=== PATIENT | female | born 1990 | race Caucasian/White ===

== ENCOUNTER 2019-04-18 02:14 | Emergency (ER) | payer OTHER, MEDICAID, SELFPAY ==
[2019-04-18 02:22] VITALS: BP 113/78; PULSE 123; RESP 18; TEMP 37.2; O2SAT 100; BMI 30.1
[2019-04-18 02:56] LABS: Appearance Urine UA CLOUDY; Bilirubin Urine UA NEGATIVE (NEGATIVE); Color Urine UA YELLOW; Glucose Urine UA NEGATIVE (Negative); Ketones Urine UA NEGATIVE (NEGATIVE); Leukocyte Esterase Urine UA 3+ (NEGATIVE); Nitrite Urine UA NEGATIVE (Negative); Occult Blood Urine UA 1+ (Negative); Protein Urine UA 1+ (Negative); Urobilinogen Urine UA 0.2 E.U./dL (0.2)
[2019-04-18 02:59] LABS: Pregnancy Test Urine Negative (Negative)
[2019-04-18 03:09] LABS: RBC Urine 1-5/HPF (0-5/HPF); WBC Urine >100/HPF (0-5/HPF)
[2019-04-18 03:10] LABS: Bacteria Urine Many (>30); Culture Indicated Urine Specimen Cultured; Squamous Epithelial Cell Urine 0-1 /HPF (0-5/HPF)
[2019-04-18 04:00] VITALS: BP 122/70; PULSE 60; RESP 18; TEMP 37.3; O2SAT 98
--- NOTE | 2019-04-18 05:54 | ED_ITS ---
HPI - Female Genitourinary General Chief complaint: Urogenital-Female Stated complaint: thinks kidney infection Time Seen by Provider: 04/18/19 05:54 Source: patient Mode of arrival: Ambulatory Limitations: no limitations History of Present Illness HPI Narrative: This is a 28-year-old female comes emergency department with complaint of flank pain as well as dysuria urgency and frequency. Patient states she thinks she has a kidney infection. She thinks she has felt warm like she has had fevers. She has had nausea but no vomiting. She has some lower abdominal pain. No vaginal bleeding or discharge. No issues with bowel movements, no diarrhea constipation patient states that she has had her appendix removed, she does use multiple illicit substances, smokes tobacco. Patient states she is quite uncomfortable at this time. Related Data Previous Rx's Medication Instructions Recorded cephalexin 500 mg PO BID #28 cap 04/18/19 Review of Systems Review of Systems ROS Unobtainable: All systems reviewed & are unremarkable except as noted in HPI and below Patient History tobacco type: cigarettes Substance Use Type: marijuana, heroin, amphetamines, IV drugs and methamphetamine Exam Narrative Exam Narrative: GENERAL: Alert and oriented x three, well-nourished female in moderate distress. Patient is tearful on exam and states she is frustrated with her weight. HEENT: Head normocephalic, atraumatic, EOMI, pupils reactive, face symmetric, moist mucous membranes NECK: Supple, full range of motion CARDIOVASCULAR: Regular rate and rhythm without murmurs, rubs or gallops. RESPIRATORY: Breath sounds equal bilaterally, no wheezes rales or rhonchi. ABDOMEN: Soft, mild suprapubic tenderness. Normoactive bowel sounds all 4 quadrants. No guarding or rebound, rigidity, no mass : Mild left CVA tenderness, no right CVA tenderness. EXTREMITIES: Normal range of motion, no clubbing or edema. Neurovascularly intact NEUROLOGICAL: Cranial nerves II through XII grossly intact. Moving all extremities SKIN: Warm, dry, no petechiae, no rashes or lesions. Initial Vital Signs Initial Vital Signs: Vital Signs Temperature 98.9 F 04/18/19 02:22 Pulse Rate 123 H 04/18/19 02:22 Respiratory Rate 18 04/18/19 02:22 Blood Pressure 113/78 04/18/19 02:22 Pulse Oximetry 100 04/18/19 02:22 Course Orders Ordered: ED Orders 04/18/19 02:38 Test Urine Stat Urinalysis and Microscopic Stat Urine Culture Stat Discontinued Medications Cefazolin Sodium (Keflex 250 Mg Prepack) 1 bottle MISC SEEINSTR ONE Stop: 04/18/19 06:10 Last Admin: 04/18/19 06:33 Dose: 500 mg Documented by: EMMA Ketorolac Tromethamine (Toradol) 30 mg IM NOW ONE Stop: 04/18/19 06:10 Last Admin: 04/18/19 06:33 Dose: 30 mg Documented by: EMMA Vital Signs Vital signs: Vital Signs - 8 hr 04/18/19 02:22 04/18/19 04:00 04/18/19 06:40 Temperature 98.9 F 99.2 F 98.8 F Pulse Rate 123 H 60 113 H Respiratory Rate 18 18 16 Blood Pressure 113/78 Blood Pressure [Right Arm] 122/70 110/60 Pulse Oximetry 100 98 99 MDM - Female Genitourinary Lab Data Attestation: I reviewed the patient's lab results. Labs: Lab Results 04/18/19 04/18/19 Range/Units 02:38 02:38 Urine Color Yellow Urine Appearance Cloudy Urine pH 8.0 (4.5-8.0) Ur Specific [place] 1.020 (1.000-1.035) Urine Protein 1+ H (Negative) Urine Glucose (UA) Negative (Negative) g/dL Urine Ketones Negative (NEGATIVE) Urine Occult Blood 1+ H (Negative) Urine Nitrate Negative (Negative) Urine Bilirubin Negative (NEGATIVE) Urine Urobilinogen 0.2 (0.2) E.U./dL Ur Leukocyte Esterase 3+ H (NEGATIVE) Urine RBC 1-5/hpf (0-5/HPF) Urine WBC >100/hpf H (0-5/HPF) Ur Squamous Epith Cells 0-1 /hpf (0-5/HPF) Urine Bacteria Many (>30) H (None) Ur Culture Indicated? Specimen cultured Urine Test Negative (Negative) MDM Narrative Medical decision making narrative: Patient's labs and history are consistent with pyelonephritis she was initially tachycardic but had also recently used methamphetamines per the patient herself. Her vitals have improved during her stay here without additional intervention. She was given some fluids which she did not have any vomiting or issues drinking. Given a dose of Toradol for pain and started on oral antibiotics. Discussed return precautions signs and symptoms to watch for and reasons to return emergently. Discharge Plan Departure Patient Disposition: Home Clinical Impression: Pyelonephritis Instructions: DI for Kidney Infection Activity Restrictions/Additional Instructions: Follow-up in the next week if your symptoms are not resolved or resolving. You may take ibuprofen and/or Tylenol as needed for pain. Take antibiotics until they are completely gone. Return to the ER for recurrent fevers, passing out, persistent vomiting, black or bloody stools, inability to urinate, rapidly worsening flank or abdominal pain or other new or concerning symptoms. Prescriptions: New cephalexin 500 mg capsule 500 mg PO BID Qty: 28 RF: 0
[2019-04-18] MEDS: KETOROLAC 60 MG/2 ML VIAL 30 MG IM (06:33)
[2019-04-18] MEDS: cephALEXin 250 MG PREPACK 1 BOTTLE MISC (06:33)
[2019-04-18 06:40] VITALS: BP 110/60; PULSE 113; RESP 16; TEMP 37.1; O2SAT 99
== END 2019-04-18 06:51 | disposition home or self-care (01) ==
PROVIDERS: Emergency Provider Emergency Medicine
DX: N12 Tubulo-interstitial nephritis, not specified as acute or chronic (principal)
CPT/HCPCS: 81001; 81025; 87077; 87086; 87186; 96372; 99283; J1885

== ENCOUNTER 2019-04-20 04:26 | Emergency (ER) | payer OTHER, MEDICAID, SELFPAY ==
[2019-04-20 04:41] VITALS: BP 107/68; PULSE 86; RESP 18; TEMP 36.9; O2SAT 100
--- NOTE | 2019-04-20 04:49 | ED.GENADULT ---
HPI - General Adult General Stated complaint: kidney infection Time Seen by Provider: 04/20/19 04:29 Source: patient Mode of arrival: Ambulatory Limitations: no limitations History of Present Illness HPI narrative: Patient is a 28-year-old female. Was seen here in the emergency department approximately 48 hours ago and diagnosed with pyelonephritis. Was given a prescription for Keflex. The patient states she has been taking this for the past 2 days. Has had some nausea. No vomiting. She states that her abdomen has become more painful more distended. States she had a fever last evening. She did not take any Tylenol for this. She also complains of problems breathing secondary to pain in her abdomen. She is also complaining of lower extremity swelling. Related Data Previous Rx's Medication Instructions Recorded cephalexin 500 mg PO BID #28 cap 04/18/19 ondansetron 4 mg PO Q6H PRN #10 tab 04/20/19 Review of Systems Constitutional Constitutional: Reports fatigue and Reports fever(s) Cardiovascular Cardiovascular: Denies chest pain Respiratory Respiratory: Reports pain on inspiration Gastrointestinal Gastrointestinal: Reports abdominal pain, Reports nausea and Denies vomiting Genitourinary Genitourinary: Denies vaginal discharge Integumentary/Breasts Skin/Breast: Denies lesions and Denies rash Neurologic Neurologic: Denies behavioral changes Psychiatric Psychiatric: Denies behavioral changes Endocrine Endocrine: Reports fatigue Hematologic/Lymphatic Hematologic/Lymphatic: Denies easy bleeding and Denies easy bruising Patient History Medical History Drug abuse (Acute) Social History Smoking Status: Current every day smoker Smoking Status: Current every day smoker tobacco type: cigarettes Substance Use Type: marijuana, heroin, amphetamines, IV drugs and methamphetamine Exam Const General: cooperative and disheveled Resp Effort & Inspection: normal respiratory effort Auscultation: clear to auscultation bilaterally Cardio Rate: regular rate Rhythm: regular rhythm GI Inspection: non-distended Palpation: soft, No firm and tender (Generalized tenderness) Back/Spine/Pelvis Back: CVA tenderness right Skin Other: Multiple wounds bilateral upper extremities in multiple stages of healing. Neuro General: alert, awake and oriented x3 Extrem General: normal to inspection and capillary refill normal Course Orders Ordered: Discontinued Medications Ketorolac Tromethamine (Toradol) 30 mg IM NOW ONE Stop: 04/20/19 04:50 Ondansetron HCl (Zofran Odt) 4 mg SL NOW ONE Stop: 04/20/19 04:50 Medical Decision Making MDM Narrative Medical decision making narrative: Review of the patient's record from a couple days ago does show a diagnosis of pyelonephritis and discharge medication of Keflex. She has been taking this for the past 2 days. Review of the urine culture that was obtained at that time does show greater than 100,000 colony-forming units of a Gram-negative bacilli. No further information available to include susceptibilities. Patient has been tolerating her antibiotics. She is afebrile. Has a benign exam. I feel that we should keep her on the Keflex until the susceptibilities return in order to make any definitive diagnosis of changing the antibiotics. I do not feel that we need to obtain a CT scan of her abdomen currently. She was given Toradol for her symptoms. We did give her nausea medication today. I did inform her that she could take Tylenol and/or ibuprofen for her fevers. She is here with her mother. Her mother asked that she could be admitted to the hospital for ?at least a day ?because she is currently staying [place] it [place] any heat. I informed them that unfortunately her diagnosis and exam today would not warranted admission to the hospital. I informed her that since she is here in town that she could stop by [facility] which is open and obtain Tylenol and/or ibuprofen that she could have at home. She was informed that we will contact her for any need with changing medications. Discharge Plan Departure Patient Disposition: Home Clinical Impression: Pyelonephritis Abdominal pain Qualifiers: Abdominal location: right upper quadrant Qualified Code(s): R10.11 - Right upper quadrant pain Activity Restrictions/Additional Instructions: Your urine culture that was obtained a couple days ago is still pending. The results that should be available within the next 24-48 hours. I feel that we should continue when your current antibiotic regiment until this returns. We will call you if we need to change any antibiotics based on this. I recommend that you purchase Tylenol and/or ibuprofen so that you have at home. You can use this for fevers and body aches. Recommend that you increase your fluid intake. Take the nausea medication as needed. Contact your primary provider for follow-up. If you do not have a primary provider you can contact [phone]. This is the health human resources coordinator here at the hospital. Prescriptions: New ondansetron 4 mg tablet,disintegrating 4 mg PO Q6H PRN (Reason: nausea and vomiting) Qty: 10 RF: 0 No Action cephalexin 500 mg capsule 500 mg PO BID Qty: 28 RF: 0
[2019-04-20] MEDS: ONDANSETRON 4 MG ODT SL (04:50)
[2019-04-20] MEDS: KETOROLAC 60 MG/2 ML VIAL 30 MG IM (04:50)
[2019-04-20 04:57] VITALS: BP 103/88; RESP 20; O2SAT 100
[2019-04-20] MEDS: ONDANSETRON 4 MG ODT PREPACK 1 BOTTLE MISC (05:11)
== END 2019-04-20 05:10 | disposition home or self-care (01) ==
PROVIDERS: Emergency Provider Emergency Medicine
DX: N12 Tubulo-interstitial nephritis, not specified as acute or chronic (principal); R10.11 Right upper quadrant pain; R50.9 Fever, unspecified
CPT/HCPCS: 96372; 99283; J1885

== ENCOUNTER 2019-06-05 05:34 | Observation (INO) | payer OTHER, MEDICAID, SELFPAY ==
[2019-06-05] VITALS (16 sets, daily range): BP systolic 104–134; BP diastolic 51–89; PULSE 62–101; RESP 10–20; TEMP 36.2–37.2; O2SAT 94–100; BMI 30.1; BMI 30.4
--- NOTE | 2019-06-05 05:36 | ED.SKABFB ---
HPI - Skin/Abscess/Foreign Bdy General Chief complaint: Skin/Abscess/Foreign Body Stated complaint: rt thumb burned, lft wrist bug bite Time Seen by Provider: 06/05/19 05:36 Source: patient Mode of arrival: Ambulatory Limitations: no limitations History of Present Illness HPI narrative: 28F smoker with history of IVDA presents with a bug bite to her left wrist and a burn on her right thumb. She denies any systemic complaints such as fever, chills nor nausea or vomiting. She states she had a cut on her right thumb which irritated her a bit and then was trying to light marshmallows with a linen controller and a melted marshmallow was stuck to the tip of her thumb. She now has pain, swelling, difficult moving her thumb, pain radiating to palm. She denies seeing a bug bite her on her left wrist, but states she developed this bite over the past few days. She denies any IVDA in over a month and only smokes now. MD complaint: abscess/boil Onset (ago): day(s) Location: LUE and R hand Severity: moderate Quality: aching Pain Consistency: constant Exacerbating factors: movement Associated symptoms: denies other symptoms Related Data Previous Rx's Medication Instructions Recorded cephalexin 500 mg PO BID #28 cap 04/18/19 ondansetron 4 mg PO Q6H PRN #10 tab 04/20/19 Allergies Allergy/AdvReac Type Severity Reaction Status Date / Time No Known Drug Allergies Allergy Verified 06/05/19 05:49 Review of Systems Constitutional Constitutional: Denies chills, Denies fatigue, Denies fever(s), Denies frequent falls, Denies lethargy and Denies weakness Eyes Eyes: Denies change in vision, Denies eye discharge, Denies irritation and Denies loss of vision ENT Ears, Nose, Mouth, and Throat: Denies change in voice, Denies dizziness, Denies neck pain, Denies sore throat and Denies throat swelling Cardiovascular Cardiovascular: Denies chest pain, Denies irregular heart rhythm, Denies lightheadedness, Denies palpitations, Denies dyspnea, Denies dyspnea on exertion and Denies orthopnea Respiratory Respiratory: Denies cough, Denies dyspnea, Denies dyspnea on exertion and Denies wheezing Gastrointestinal Gastrointestinal: Denies abdominal pain, Denies change in bowel habits, Denies diarrhea, Denies nausea and Denies vomiting Genitourinary Genitourinary: Denies hematuria, Denies flank pain, Denies urinary incontinence and Denies urinary urgency Musculoskeletal Musculoskeletal: Denies back pain, Reports joint swelling, Reports limited range of motion, Denies muscle weakness, Denies neck pain, Denies numbness and Denies tingling Integumentary/Breasts Skin/Breast: Denies pruritus, Reports erythema, Denies rash and Denies wounds Neurologic Neurologic: Denies behavioral changes, Denies confusion, Denies dizziness, Denies frequent falls, Denies loss of vision, Denies numbness, Denies tingling and Denies weakness Psychiatric Psychiatric: Denies anxiety, Denies behavioral changes, Denies confusion, Denies depression, Denies homicidal ideation and Denies suicidal ideation Endocrine Endocrine: Denies fatigue, Denies flushing and Denies palpitations Hematologic/Lymphatic Hematologic/Lymphatic: Denies easy bruising Allergic/Immunologic Allergic/Immunologic: Denies urticaria, Denies throat swelling and Denies wheezing Patient History Medical History Drug abuse (Acute) Social History Smoking Status: Current every day smoker Smoking Status: Current every day smoker tobacco type: cigarettes Substance Use Type: marijuana, heroin, amphetamines, IV drugs and methamphetamine Exam Narrative Exam Narrative: GENERAL: [Please] year old patient appears stated age. Well-nourished, well-developed patient, in mild distress. Tearful HEAD: Atraumatic. Normocephalic. EYES: Pupils equal round and reactive. Extraocular motions intact. No scleral icterus. No injection or drainage. ENT: Nose without bleeding, purulent drainage. Throat without erythema, tonsillar hypertrophy or exudate. Airway patent. NECK: Trachea midline. Non tender CARDIOVASCULAR: Regular rate and rhythm without murmurs, gallops, or rubs. RESPIRATORY: Clear to auscultation. Breath sounds equal bilaterally. No wheezes, rales, or rhonchi. GASTROINTESTINAL: Abdomen soft, non-tender, nondistended. EXTREMITIES: 2 cm fluctuant mass overlying distal minimal surrounding erythema consistent with abscess. Right thumb significantly swollen, erythematous, held in flexion, significant pain with passive extension. Pain on palpation along flexor tendon into thenar eminence BACK: Nontender without deformity or crepitance. No flank tenderness. NEURO: AOx3. SKIN: No rash or erythema of visible areas Initial Vital Signs Initial Vital Signs: Vital Signs Temperature 97.9 F 06/05/19 05:43 Pulse Rate 91 H 06/05/19 05:43 Respiratory Rate 14 06/05/19 05:43 Blood Pressure 134/61 06/05/19 05:43 Pulse Oximetry 100 06/05/19 05:43 Course Course Course Narrative: call to Dr. Hay, given her NPO status (since 529) he recommends NPO, ABX, will take to OR later Orders Ordered: ED Orders 06/05/19 06:15 Basic Metabolic Panel Stat Blood Culture Stat C-Reactive Protein Quant Stat Complete Blood Count AUTO DIFF Stat Erythrocyte Sedimentation Rate Stat Vancomycin HCl/Dextrose (Vancomycin) 1,500 mg in 300 mls @ 200 mls/hr IV NOW ONE Stop: 06/05/19 07:38 Naloxone HCl (Narcan) 0.2 mg IV Q2MIN PRN PRN Reason: Opiate Reversal Discontinued Medications Doxycycline Hyclate (Vibramycin) 100 mg PO NOW ONE Stop: 06/05/19 05:40 Last Admin: 06/05/19 06:08 Dose: Not Given Documented by: JORGE LUIS Lidocaine/Sodium Bicarbonate (Buffered Lidocaine 10 Ml Syr) 10 ml INJ NOW ONE Stop: 06/05/19 05:40 Last Admin: 06/05/19 05:48 Dose: 10 ml Documented by: JORGE LUIS Vital Signs Vital signs: Vital Signs - 8 hr 06/05/19 05:43 Temperature 97.9 F Pulse Rate 91 H Respiratory Rate 14 Blood Pressure 134/61 Pulse Oximetry 100 MDM - Skin/Abscess/Foreign Bdy Lab Data Result diagrams: 06/05/19 06:15 06/05/19 06:15 Labs: Lab Results 06/05/19 06/05/19 Range/Units 06:15 06:15 WBC 9.6 (4.5-11.0) X10^3/uL RBC 4.71 (4.0-5.2) X10^6/uL Hgb 14.3 (12.0-16.0) g/dL Hct 42.6 (36-46) % MCV 90.5 (80-100) fL MCH 30.4 (26-34) PG MCHC 33.6 (30-36) % RDW 14.5 (11.6-14.8) % Plt Count 253 (150-400) X10^3/uL Neut % (Auto) 70.1 (50-75) % Lymph % (Auto) 18.6 L (25-40) % [place] % (Auto) 8.8 (3-14) % Eos % (Auto) 1.9 L (2-4) % Baso % (Auto) 0.6 (0-2) % Neut # (Auto) 6700 (6147-3978) /uL Lymph # (Auto) 1800 (4488-1348) /uL [place] # (Auto) 800 (0-900) /uL Eos # (Auto) 200 (0-450) /uL Baso # (Auto) 100 (0-100) /uL ESR 11 (0-20) MM/HR Sodium 140 (137-145) mmol/L Potassium 3.8 (3.4-5.1) mmol/L Chloride 103 (98-107) mmol/L Carbon Dioxide 29 (22-32) mmol/L BUN 18 H (7-17) mg/dL Creatinine 0.65 (0.52-1.04) mg/dL Estimated GFR > 60.0 (>60) mL/min BUN/Creatinine Ratio 27.7 H (6-22) Glucose 126 H (70-100) mg/dL Calcium 9.7 (8.4-10.2) mg/dL C-Reactive Protein 0.8 (<1.0) mg/dL MDM Narrative Medical decision making narrative: Patient admits to cut on skin of thumb prior to it being burned. The redness, pain and swelling is worsening and spreading down the thumb. It is significantly worse today. Physical exam is highly suspicious of flexor tenosynovitis with possible abscess. Patient refused I&D of L wrist abscess in ED, stating why can't they just do it when I'm asleep? I don't want you to do it now Discharge Plan Departure Patient Disposition: Admitted as Observation Clinical Impression: Abscess of skin or subcutaneous tissue, Flexor tenosynovitis of thumb Admit Date/Time: 06/05/19 06:26 Admit Provider: Seamus Hay
[2019-06-05] MEDS: LIDO 1%/SOD BICARB 8.4% (10ML) 10 ML SYRINGE INJ (05:48)
--- NOTE | 2019-06-05 06:25 | PC.NURSE ---
patient reports having a burning marshmallow stuck onto her right thumb when she was roasting marshmallows with a bic toy assembler wood. reports it happened about a week ago. Patient additionally reports having a bug bite on her left wrist that is now a draining boil. Reports her tetanus is up to date.
[2019-06-05 06:29] LABS: Add Manual Diff / Slide Review NO; Basophils Absolute Auto 100 /uL (0-100); Basophils Percent Auto 0.6 % (0-2); Eosinophils Absolute Auto 200 /uL (0-450); Eosinophils Percent Auto 1.9 % (2-4); Hematocrit 42.6 % (36-46); Hemoglobin 14.3 g/dL (12.0-16.0); Lymphocytes Absolute Auto 1800 /uL (1100-4500); Lymphocytes Percent Auto 18.6 % (25-40); Mean Corpuscular HGB Conc 33.6 % (30-36); Mean Corpuscular Hemoglobin 30.4 PG (26-34); Mean Corpuscular Volume 90.5 fL (80-100); Monocytes Absolute Auto 800 /uL (0-900); Monocytes Percent Auto 8.8 % (3-14); Neutrophils Absolute Auto 6700 /uL (1500-7000); Neutrophils Percent Auto 70.1 % (50-75); Platelet Count 253 X10^3/uL (150-400); Red Blood Cell Count 4.71 X10^6/uL (4.0-5.2); Red Cell Distribution Width 14.5 % (11.6-14.8); White Blood Cell Count 9.6 X10^3/uL (4.5-11.0)
--- NOTE | 2019-06-05 06:37 | PC.NURSE ---
Patient stated she refused the second set of blood cultures. She said I would'nt let her do it. Provider aware.
[2019-06-05 06:38] LABS: BUN Creatinine Ratio 27.7 (6-22); Blood Urea Nitrogen 18 mg/dL (7-17); C-Reactive Protein Quant 0.8 mg/dL (<1.0); Calcium 9.7 mg/dL (8.4-10.2); Carbon Dioxide 29 mmol/L (22-32); Chloride 103 mmol/L (98-107); Estimated Glomerular Filt Rate > 60.0 mL/min (>60); Glucose 126 mg/dL (70-100); HEMOLYSIS < 15 (0-50); Potassium 3.8 mmol/L (3.4-5.1); Sodium 140 mmol/L (137-145)
[2019-06-05 06:49] LABS: Erythrocyte Sedimentation Rate 11 MM/HR (0-20)
[2019-06-05] MEDS: VANCOMYCIN 1,500 MG/300 ML FROZ.PIGGY 200 MG IV (07:05)
--- NOTE | 2019-06-05 07:06 | PC.NURSE ---
vancomyacin to continue in acute care.
[2019-06-05] MEDS: SODIUM CHLORIDE 0.9% 1,000 ML 125 ML IV (07:55)
--- NOTE | 2019-06-05 08:23 | PM.HP.1 ---
History of Present Illness History of Present Illness Date Patient Seen: 06/05/19 Time Patient Seen: 08:25 Date of Onset of Symptoms: 05/30/19 Chief complaint: rt thumb burn, lft wrist bug bite Narrative: The patient is a 28 yo RHD female who is an active IV drug abuser with heroin and methamphetamine. She reports a burn with a hot marshmallow to the tip of her right thumb approximately 6 days ago. About 2 days after the burn she started to develop significant swelling and pain in the distal pad of the thumb. She presented to the emergency room this morning with complaints of the burn on the thumb and a contralateral, left wrist abscess. She denies that either abscess is an injection site. She says she has not used IV drugs for approximately 2 weeks, and all injections have been into the left antecubital fossa. She specifically denies fevers and chills but gives a 1 day history of significant dysuria. Patient History Medical History (Updated 06/05/19 @ 08:33 by Seamus Hay MD) Asthma (Acute) Drug abuse (Acute) Surgical History (Updated 06/05/19 @ 08:33 by Seamus Hay MD) History of appendectomy (Acute) Family & Social History Safety & Behavioral: Feels Safe in Current Yes Environment Been Physically Hurt or No Threatened By a Person Tobacco & Substance use: Smoking Status Current every day smoker alcohol intake frequency 0-2 drinks per day Substance Use Type marijuana,amphetamines,IV drugs,heroin, methamphetamine Meds Home Medications and Allergies Home Medications Medication Instructions Recorded Confirmed Type cephalexin 500 mg PO BID #28 cap 04/18/19 Rx ondansetron 4 mg PO Q6H PRN #10 tab 04/20/19 Rx Allergies Allergy/AdvReac Type Severity Reaction Status Date / Time No Known Drug Allergies Allergy Verified 06/05/19 05:49 Review of Systems Constitutional Constitutional: Denies anorexia, Reports body ache(s), Denies chills and Denies fever(s) Eyes Eyes: Reports system reviewed; no additional complaints, except as documented ENT Ears, Nose, Mouth, and Throat: Yes system reviewed; no additional complaints, except as documented Cardiovascular Cardiovascular: Reports system reviewed; no additional complaints, except as documented Respiratory Respiratory: Reports as per HPI Gastrointestinal Gastrointestinal: Reports system reviewed and no additional complaints, except as documented Genitourinary Genitourinary: Reports other (dysuria for one day) Musculoskeletal Musculoskeletal: Reports arthralgias Integumentary/Breasts Skin/Breast: Reports as per HPI Exam Vital Signs (past 8 hours): - 06/05/19 05:43 06/05/19 07:02 06/05/19 07:03 Temperature 97.9 F 97.2 F L Pulse Rate 91 H 73 62 Respiratory Rate 14 16 10 L Blood Pressure 134/61 114/74 121/70 Pulse Oximetry 100 100 100 Oxygen Delivery Method Room Air Narrative Exam Narrative: The patient is a well-developed well-nourished 28-year-old woman lying in bed in obvious discomfort. Chest is clear to auscultation with no wheezes. Cardiac exam is regular rate and rhythm no rubs murmurs or gallops. Abdomen is soft nontender with no palpable masses and normal abdominal bowel sounds. Extremities examination is notable for both distal upper extremities. There is a localized swelling of the digital pad of the right thumb with what appears to be a pointing abscess. Although she is tender along the flexor surface of the thumb, there is no swelling, there is no tenseness of the skin, and no palpable masses more proximally. She is reacting significantly to all mildly painful stimuli including passive extension of the thumb. She is nontender over the base of the small finger and over the carpal tunnel region. Light touch appears to be intact throughout. Overlying the 1st dorsal compartment of the left wrist, there is a localized furuncle with a central bloody spot. This is surrounded by a small amount of erythema and has a central area of purulence. Objective Labs Result Diagrams: 06/05/19 06:15 06/05/19 06:15 Labs: Laboratory Results - last 24 hr 06/05/19 06/05/19 06:15 06:15 WBC 9.6 RBC 4.71 Hgb 14.3 Hct 42.6 MCV 90.5 MCH 30.4 MCHC 33.6 RDW 14.5 Plt Count 253 Neut % (Auto) 70.1 Lymph % (Auto) 18.6 L [place] % (Auto) 8.8 Eos % (Auto) 1.9 L Baso % (Auto) 0.6 Neut # (Auto) 6700 Lymph # (Auto) 1800 [place] # (Auto) 800 Eos # (Auto) 200 Baso # (Auto) 100 ESR 11 Sodium 140 Potassium 3.8 Chloride 103 Carbon Dioxide 29 BUN 18 H Creatinine 0.65 Estimated GFR > 60.0 BUN/Creatinine Ratio 27.7 H Glucose 126 H Calcium 9.7 C-Reactive Protein 0.8 Assessment & Plan Assessment & Plan narrative: 1. Right thumb abscess with potential flexor tendon involvement. We will prepare the patient for incision and drainage of the thumb abscess. If there appears to be evidence of tendon involvement at surgery she is aware that there may be proximal incisions at the base of the thumb and potentially at the carpal tunnel. 2. Left wrist abscess. While she is under anesthesia for the right thumb procedure I will perform a localized incision and drainage of the furuncle on her left wrist. 3. Dysuria. It is possible the patient has urinary tract infection. To appropriately treat this we would need a non contaminated urine culture. Given the fact that the patient has significant pain with use of her right, dominant, hand, I feel it is highly unlikely she would be able to provide an appropriate clean catch urine. I have suggested that she have an in and out straight catheterization to obtain a non contaminated sample, but the patient has refused. If she elects to allow this in the future we will obtain a urine sample. Time Spent With Patient Time with patient: 25 - 35 minutes
--- NOTE | 2019-06-05 10:11 | PC.NURSE ---
Day shift: Pt has been sleeping on and off. Does not wake up to answer questions from this appeals writer and for lack of a better work has been uncooperative but pleasant. Pt has voided 3 times. Is steady on feet. Was tearful in the BR at approx 0920 today. Has refused in and out cath to check urine for UTI and Dr Hay is aware. When Pt wakes up again will ask her if they can cath her when she is asleep for the I&D later today. VS WNL. RA 97%. Lungs clear and denies any chest pain. Pain meds available per MAR as well as anxiety meds. Pt not awake long enough to give pain meds at this time. Will continue to monitor. Pt is NPO. Uses call light proper. Door to room open and line of site from this writers work station.
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
--- NOTE | 2019-06-05 14:12 | PC.NURSE ---
Day shift: Pt very tired and sleeping at this time (1415). Sl for transfer to surgery. Pt was asked if it would be OK to do the in and out cath for urine sample but Pt did not reply to my question. VS remain WNL. RR 16 and RA 99%.
--- NOTE | 2019-06-05 14:43 | PC.NURSE ---
Day shift: Pt off of AC unit at 1440 for procedure. Jewelry placed in patient bag and placed in room closet.
[2019-06-05] MEDS: LACTATED RINGERS 1,000 ML 42 ML IV (15:15)
--- NOTE | 2019-06-05 16:14 | SUR.OPER ---
Supine on padded OR bed, head on pillow, arms secured on padded arm boards at <90 degrees abduction, legs uncrossed, safety belt at thigh, tape over blanket over lower legs.
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
[2019-06-05] MEDS: LACTATED RINGERS 1,000 ML 100 ML IV (16:44)
--- NOTE | 2019-06-05 17:02 | SUR.PHASEI ---
REPORT CALLED TO MELY WARNER ON ACUTE CARE FLOOR. PT IN STABLE CONDITION, VSS. PT RESTING IN BED WITH EYES CLOSED, EASILY RESPONDS TO VOICE WHEN SPOKEN TO. PT APPEARS COMFORTABLE AT THIS TIME. WILL TRANSFER TO ACUTE CARE FLOOR.
--- NOTE | 2019-06-05 17:24 | SUR.PHASEI ---
PT TRANSFERRED TO ACUTE CARE FLOOR IN STABLE CONDITION, VSS. PT RESTING WITH EYES CLOSED, EASILY AROUSABLE TO VOICE WHEN SPOKEN TO. BEDSIDE REPORT GIVEN TO MELY WARNER UPON ARRIVAL TO ROOM. TRANSFERRED CARE OF CARE TO MELY WARNER WITH VSS.
[2019-06-05] MEDS: LACTATED RINGERS 1,000 ML 125 ML IV (17:27)
[2019-06-05] MEDS: OXYCODONE IR 10 MG TABLET PO ×2 (18:31→21:17)
[2019-06-05] MEDS: VANCOMYCIN 1,000 MG/200 ML PIGGYBACK 200 MG IV (18:32)
[2019-06-05] MEDS: LORazepam 0.5 MG TABLET PO ×2 (19:39→20:15)
[2019-06-05] MEDS: HYDROMORPHONE 0.5 MG INJ 0.2 MG IV (19:39)
[2019-06-05] MEDS: ACETAMINOPHEN 325 MG TABLET 975 MG PO (21:16)
[2019-06-06] MEDS: VANCOMYCIN 1,000 MG/200 ML PIGGYBACK 200 MG IV ×2 (01:21→08:00)
[2019-06-06] MEDS: LACTATED RINGERS 1,000 ML 125 ML IV (04:12)
[2019-06-06 05:48] VITALS: BP 100/68; PULSE 83; RESP 16; TEMP 36.8; O2SAT 97
[2019-06-06 06:33] LABS: Hematocrit 40.2 % (36-46); Hemoglobin 13.2 g/dL (12.0-16.0); Mean Corpuscular HGB Conc 32.8 % (30-36); Mean Corpuscular Hemoglobin 29.9 PG (26-34); Platelet Count 291 X10^3/uL (150-400); Red Blood Cell Count 4.42 X10^6/uL (4.0-5.2)
[2019-06-06 08:00] VITALS: BP 86/64; PULSE 89; RESP 18; TEMP 36.8; O2SAT 97
[2019-06-06] MEDS: ACETAMINOPHEN 325 MG TABLET 975 MG PO (08:00)
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
--- NOTE | 2019-06-06 08:54 | CM.DPC ---
DCP Cont: Patient had her I&D done last pm. She is to be discharged home today on oral antibiotics. Patient given teaching from nurse regarding her dressing. She is to be following up with ortho. P: Patient is to be discharged home today. Kalpana Oliveira RN/Supervisor Coil Winding
[2019-06-06] MEDS: TRIMETH/SULFA 160/800 (DS) TABLET 1 TAB PO (09:08)
[2019-06-06] MEDS: OXYCODONE IR 5 MG TABLET PO (11:33)
--- NOTE | 2019-06-06 13:17 | PC.NURSE ---
Patient rates pain to Right thumb 5/10 given 5mg oxycodone. CMS+ Right hand. Patient showered, changed dressing due to outer layer being damp. Went over dc instructions and medications with patient, patient aware to call [facility] this week for follow up appt.
== END 2019-06-06 13:41 | disposition home or self-care (01) ==
LOC: ED 05:57 → AC 06:27
PROVIDERS: Admitting Provider Orthopaedic Surgery; Emergency Provider Emergency Medicine; Visit Provider Orthopaedic Surgery
PROC: (CPT 10060; principal; 2019-06-05 15:00)
DX: L03.011 Cellulitis of right finger (principal); L02.522 Furuncle left hand; R30.9 Painful micturition, unspecified; F17.210 Nicotine dependence, cigarettes, uncomplicated; F11.10 Opioid abuse, uncomplicated; F15.10 Other stimulant abuse, uncomplicated; F12.90 Cannabis use, unspecified, uncomplicated; J45.909 Unspecified asthma, uncomplicated
CPT/HCPCS: 10060; 26010; 36415; 80048; 85025; 85027; 85651; 86140; 87040; 87070; 87075; 87077; 87086; 87147; 87186; 87205; 87797; 96365; 96366; 96375; 99284; G0378; J1170; J2250; J2704; J3010

== ENCOUNTER 2019-06-23 20:34 | Emergency (ER) | payer OTHER, MEDICAID, SELFPAY ==
[2019-06-05 09:58] VITALS: BMI 30.4
[2019-06-23 20:55] VITALS: BP 140/66; PULSE 100; RESP 18; TEMP 37; O2SAT 100; BMI 30.1
--- NOTE | 2019-06-23 21:04 | ED_ITS ---
HPI - Recheck/Abnormal Lab/Rx General Chief Complaint: Recheck/Abnormal Lab/Rx Stated Complaint: recent thumb surgery,says gauze stuck in incision Time Seen by Provider: 06/23/19 20:46 Source: patient Mode of arrival: Ambulatory Limitations: no limitations History of Present Illness HPI narrative: 28-year-old female who several weeks ago underwent an incision and drainage of a felon in her right thumb. Has not followed up since that time. Still has her stitches in place. States there was a piece of gauze stuck in the incision. Stated that she did not follow up because she lost the paperwork and did not have phone numbers. She has not contacted her primary provider. She is here because she has not been following up and thought that we could help her. Related Data Previous Rx's Medication Instructions Recorded oxycodone 5 mg PO Q3HR PRN #20 tab 06/06/19 sulfamethoxazole-trimethoprim 1 tab PO BID #15 tab 06/06/19 Allergies Allergy/AdvReac Type Severity Reaction Status Date / Time No Known Drug Allergies Allergy Verified 06/23/19 20:55 Review of Systems Constitutional Constitutional: Denies fever(s) Musculoskeletal Musculoskeletal: Denies myalgias, Denies arthralgias and Denies tingling Integumentary/Breasts Comments: Stitches to surgical wound right thumb Neurologic Neurologic: Denies tingling Hematologic/Lymphatic Hematologic/Lymphatic: Denies easy bleeding and Denies easy bruising Patient History Medical History Asthma (Acute) Drug abuse (Acute) Surgical History (Updated 06/05/19 @ 08:33 by Seamus Hay MD) History of appendectomy (Acute) Social History household members: other Smoking Status: Current every day smoker alcohol intake: current Smoking Status: Current every day smoker tobacco type: cigarettes alcohol intake frequency: 0-2 drinks per day Substance Use Type: marijuana, heroin, amphetamines, IV drugs and methamphetamine Exam Initial Vital Signs Initial Vital Signs: Vital Signs Temperature 98.6 F 06/23/19 20:55 Pulse Rate 100 H 06/23/19 20:55 Respiratory Rate 18 06/23/19 20:55 Blood Pressure 140/66 06/23/19 20:55 Pulse Oximetry 100 06/23/19 20:55 Const General: cooperative and comfortable Cardio Pulses: radial pulses present on the right Skin Other: Patient with a well-healing surgical wound to her right thumb consistent with her stated surgical history. There are [address] There is no surrounding erythema. There is granulation tissue. There is a small amount of gauze it here to the granulation tissue. Extrem Other: Full range of motion of the IP and MCP joint of the right thumb Course Orders Ordered: Discontinued Medications Bacitracin (Bacitracin) 1 applic TOP NOW ONE Stop: 06/23/19 21:15 Last Admin: 06/23/19 21:31 Dose: 1 applic Documented by: CAMILO Ibuprofen (Advil) 800 mg PO NOW ONE Stop: 06/23/19 21:15 Last Admin: 06/23/19 21:31 Dose: 800 mg Documented by: CAMILO Vital Signs Vital signs: Vital Signs - 8 hr 06/23/19 20:55 Temperature 98.6 F Pulse Rate 100 H Respiratory Rate 18 Blood Pressure 140/66 Pulse Oximetry 100 MDM - Recheck/Abnormal Lab/Rx MDM Narrative Medical decision making narrative: There does not appear to be any cellulitis. The wound appears to be healing well. The gauze that she was concerned about was adhered to the granulation tissue was removed without incident. The 3 stitches were also removed. No further workup needed in the emergency department. Patient was given the phone number for the orthopedic group since she could follow-up with them. Discharge Plan Departure Patient Disposition: Home Clinical Impression: Encounter for removal of sutures Discharge Date/Time: 06/23/19 21:37 Instructions: DI for Suture Removal Activity Restrictions/Additional Instructions: You can wash your hands like normal. I do recommend that you contact the [facility] group at [phone] for a follow-up. Prescriptions: No Action sulfamethoxazole-trimethoprim 800-160 mg Tablet 1 tab PO BID Qty: 15 RF: 0 oxycodone 5 mg Tablet 5 mg PO Q3HR PRN (Reason: Pain, Moderate (4-6)) Qty: 20 RF: 0
[2019-06-23] MEDS: BACITRACIN OINT 0.9 GM PCKT 1 APPLIC TOP (21:31)
[2019-06-23] MEDS: IBUPROFEN 400 MG TABLET 800 MG PO (21:31)
== END 2019-06-23 21:37 | disposition home or self-care (01) ==
PROVIDERS: Emergency Provider Emergency Medicine
DX: Z48.02 Encounter for removal of sutures (principal)
CPT/HCPCS: 99281; 99283

== ENCOUNTER 2020-03-31 14:45 | Emergency (ER) | payer OTHER, MEDICAID, SELFPAY ==
[2019-06-05 09:58] VITALS: BMI 30.4
[2020-03-31 14:45] VITALS: BP 118/56; PULSE 103; RESP 18; TEMP 36.5; O2SAT 98; BMI 31.8
--- NOTE | 2020-03-31 15:22 | ED_ITS ---
HPI - Extremity Problem <Lopez Farmer [facility] - Last Filed: 03/31/20 16:52> General Chief complaint: Extremity Problem,Nontraumatic Stated complaint: swollen left leg Time Seen by Provider: 03/31/20 14:50 Source: patient Mode of arrival: Wheelchair Limitations: no limitations History of Present Illness HPI Narrative: This is a 29 year female, smoker, who has past medical history with multiple DJD and IVDU, appendectomy followed abscess development in abdomen presents to ED with significant other with chief complain of left leg swelling and pain without traumatic/injury onset of 3 days ago. Patient noticed indentation and repeating edema to left lower leg likely from pants inseam on that day. The swelling became worse the following day and could not walk on it due to significant discomfort. She rested in bed improved the swelling. Then the following day, patient walked a lot again and noticing recurring generalized LLE swelling and pain worse in left pain and ankle. She also noticed localized right ankle swelling and discomfort. Patient reports some redness to left foot and ankle and bilateral leg warmth. Patient denies fever, chills, nausea or vomiting. Patient denies chest pain, breathing difficulty, orthopnea. Patient denies history of any cardiac or respiratory disease. Patient currently uses meth and heroin which she smokes and last use was today. Patient denies history of recent surgery, prolonged travel, or history of blood clots. Patient states she is unsure of known COVID exposure. Related Data Previous Rx's Medication Instructions Recorded sulfamethoxazole-trimethoprim 1 tab PO BID 7 Days #14 tab 03/31/20 [Bactrim DS] Allergies Allergy/AdvReac Type Severity Reaction Status Date / Time No Known Drug Allergies Allergy Verified 06/23/19 20:55 Review of Systems <Lopez Farmer [facility] - Last Filed: 03/31/20 16:52> Review of Systems Narrative: General: Denies fever, chills, fatigue, malaise, sweats. HEENT: Denies sinus pain, ear pain, sore throat, difficulty swallowing, dizziness. Respiratory: Denies dyspnea, cough, wheezing, hemoptysis, sputum. Cardiovascular: Denies chest pain, palpitations, orthopnea, edema. Gastrointestinal: Denies nausea, vomiting, abdominal pain, diarrhea, constipation, melena. : Denies dysuria, frequency, incontinence, hematuria, urinary retention. Musculoskeletal: See HPI Skin: See HPI Neurologic: Denies weakness, headache, numbness, change in speech, confusion, seizures, incoordination. Psychiatric: No concerning psychosocial issues. 12-point review of systems is negative except for those stated above. Patient History <GLENDY Wilkins - Last Filed: 03/31/20 16:52> Medical History (Updated 03/31/20 @ 16:47 by GLENDY Wilkins) Asthma Drug abuse Surgical History History of appendectomy Social History household members: other Smoking Status: Current every day smoker alcohol intake: current Smoking Status: Current every day smoker tobacco type: cigarettes alcohol intake frequency: 0-2 drinks per day Substance Use Type: heroin and methamphetamine Exam <GLENDY Wilkins - Last Filed: 03/31/20 16:52> Narrative Exam Narrative: GEN: Alert, oriented x 3, well appearing and nourished, and moderate discomfort during exam when LLE is palpate/moved. Appears to be sleepy but aroused by verbal command and conversational and states had smoked methamphetamine/heroin before coming into ED. Head: Normal cephalic, atraumatic. No scalp or temporal tenderness, palpable mass or rash. EYES: Pupils bilaterally 1mm are equal, round, and reactive to light and accommodation. Extraocular muscles are intact bilaterally. There is no subcon junctival hemorrhage, exudate and sclera non-icteric. ENT: Hearing grossly intact. Nose without bleeding, purulent discharge or deviation. Facial sinuses nontender to palpate. Mucous membrane moist, no mucosal lesion. Throat without erythema, tonsillar hypertrophy or exudate. Uvula in midline, airway patent. Neck: Trachea in midline. No JVD, non-tender without lymphadenopathy. No masses or thyroid megaly. Supple, non-tender and no meningeal signs. CARDIAC: Normal regular rate and rhythm without murmurs, gallops, or rubs. No chest wall tenderness. No peripheral edema, cyanosis or pallor. Capillary refill is less than 2 seconds. RESPIRATORY: Lungs are clear to auscultate bilaterally. No cough, wheezes, rales, or rhonchi. No stridor, respiratory distress, increase work of delmis athing, or accessary muscle used. ABD: Abdomen soft, nontender and non-distended. No guarding or rebound tenderness to palpate. Bowel sounds are normal in all 4 quadrants. There is no palpable masses or organomegaly. EXT: Painful AROM and PROM worse in LLE than RLE. Generalized LLE swelling which is not pitting and diffused redness to doral forefoot in left. Diffused warmth in bilateral leg. R ankle and foot mild tenderness with swelling. Intact sensation and pedal pulses in bilateral foot. Calf compartment is soft to palpate. SKIN: Warm, dry, normal color for patient. See EXT exm. BACK: Nontender without deformity or crepitance. No flank tenderness. NEUROLOGICAL: Alert and oriented to place, time and person. Sensation and motor function intact bilaterally. No facial droops, dysphasia. PSYCHIATRIC: Good judgement and reason, without hallucinations, abnormal affect or abnormal behaviors during the examination. Patient is not suicidal. Initial Vital Signs Initial Vital Signs: Vital Signs Temperature 97.7 F 03/31/20 14:45 Pulse Rate 103 H 03/31/20 14:45 Respiratory Rate 18 03/31/20 14:45 Blood Pressure 118/56 L 03/31/20 14:45 Pulse Oximetry 98 03/31/20 14:45 <Isela Keller DO - Last Filed: 04/03/20 10:05> Initial Vital Signs Initial Vital Signs: Vital Signs Temperature 97.7 F 03/31/20 14:45 Pulse Rate 103 H 03/31/20 14:45 Respiratory Rate 18 03/31/20 14:45 Blood Pressure 118/56 L 03/31/20 14:45 Pulse Oximetry 98 03/31/20 14:45 Scores <GLENDY Wilkins - Last Filed: 03/31/20 16:52> GCS Hayward coma scale eye opening: Spontaneous [place] coma scale verbal response: Orientated Natalie coma scale motor response: Obey commands [place] coma scale total score: 15 qSOFA Altered Mental Status (GCS <15): No Respiratory rate greater than/equal to 22: No Systolic blood pressure less than or equal to 100: No qSOFA Total: 0 0-1 Not High Risk 1-3 High risk Course <Lopez Gomez-Oras, [employer] - Last Filed: 03/31/20 16:52> Orders Ordered: Discontinued Medications Ketorolac Tromethamine (Ketorolac 60 Mg/2 Ml Vial) 15 mg IV NOW ONE Stop: 03/31/20 16:39 Last Admin: 03/31/20 16:49 Dose: 15 mg Documented by: PAULINA Trimethoprim/Sulfamethoxazole (Trimeth/Sulfa 160/800 Prepack) 1 bottle MISC SEEINSTR ONE Stop: 03/31/20 16:32 Last Admin: 03/31/20 16:49 Dose: 1 bottle Documented by: PAULINA Vital Signs Vital signs: Vital Signs - 8 hr 03/31/20 14:45 03/31/20 16:25 03/31/20 16:30 Temperature 97.7 F Pulse Rate 103 H 100 H 89 Respiratory Rate 18 Blood Pressure 118/56 L 99/52 L Pulse Oximetry 98 100 98 <Isela Keller DO - Last Filed: 04/03/20 10:05> Orders Ordered: Discontinued Medications Ketorolac Tromethamine (Ketorolac 60 Mg/2 Ml Vial) 15 mg IV NOW ONE Stop: 03/31/20 16:39 Last Admin: 03/31/20 16:49 Dose: 15 mg Documented by: PAULINA Trimethoprim/Sulfamethoxazole (Trimeth/Sulfa 160/800 Prepack) 1 bottle MISC SEEINSTR ONE Stop: 03/31/20 16:32 Last Admin: 03/31/20 16:49 Dose: 1 bottle Documented by: PAULINA Vital Signs Vital signs: Vital Signs - 8 hr 03/31/20 14:45 03/31/20 16:25 03/31/20 16:30 Temperature 97.7 F Pulse Rate 103 H 100 H 89 Respiratory Rate 18 Blood Pressure 118/56 L 99/52 L Pulse Oximetry 98 100 98 MDM - Extremity (Nontraumatic) <GLENDY Wilkins - Last Filed: 03/31/20 16:52> Differential Diagnosis Differential diagnosis: Likely cellulitis, deep vein thrombosis of lower extremity and other (venous stasis, heart failure, fluid retention) Medical Records Attestation: I reviewed the patient's medical records. Lab Data Attestation: I reviewed the patient's lab results. Result diagrams: 03/31/20 14:59 03/31/20 14:59 Labs: Lab Results 03/31/20 03/31/20 03/31/20 Range/Units 14:59 14:59 14:59 WBC 9.9 (4.5-11.0) X10^3/uL RBC 4.60 (4.0-5.2) X10^6/uL Hgb 13.5 (12.0-16.0) g/dL Hct 42.5 (36-46) % MCV 92.4 (80-100) fL MCH 29.4 (26-34) PG MCHC 31.8 (30-36) % RDW 13.0 (11.6-14.8) % Plt Count 305 (150-400) X10^3/uL Neut % (Auto) 61.6 (50-75) % Lymph % (Auto) 26.4 (25-40) % [place] % (Auto) 9.8 (3-14) % Eos % (Auto) 1.9 L (2-4) % Baso % (Auto) 0.3 (0-2) % Neut # (Auto) 6100 (1148-7987) /uL Lymph # (Auto) 2600 (8330-0829) /uL [place] # (Auto) 1000 H (0-900) /uL Eos # (Auto) 200 (0-450) /uL Baso # (Auto) 0 (0-100) /uL ESR (0-20) MM/HR D-Dimer (<230) ng/mL Sodium 138 (137-145) mmol/L Potassium 3.6 (3.4-5.1) mmol/L Chloride 101 (98-107) mmol/L Carbon Dioxide 32 (22-32) mmol/L BUN 18 H (7-17) mg/dL Creatinine 0.61 (0.52-1.04) mg/dL Estimated GFR > 60.0 (>60) mL/min BUN/Creatinine Ratio 29.5 H (6-22) Glucose 96 (70-100) mg/dL Lactate 1.4 (0.7-2.1) mmol/L Calcium 8.9 (8.4-10.2) mg/dL Total Bilirubin 0.8 (0.2-1.3) mg/dL AST 36 (14-36) IU/L ALT 43 H (<35) IU/L Alkaline Phosphatase 59 (38-126) U/L Total Creatine Kinase (30-135) U/L CK-MB (CK-2) (<2.37) ng/mL CK-MB (CK-2) Rel Index (1.5-5.0) % Troponin I (0.01-0.034) ng/mL C-Reactive Protein (<1.0) mg/dL NT-Pro-B Natriuret Pep 20 (<125) pg/mL Total Protein 7.9 (6.3-8.2) g/dL Albumin 4.4 (3.5-5.0) g/dL Globulin 3.5 (1.7-4.1) g/dL Albumin/Globulin Ratio 1.3 (1.0-2.8) 03/31/20 03/31/20 03/31/20 Range/Units 14:59 14:59 14:59 WBC (4.5-11.0) X10^3/uL RBC (4.0-5.2) X10^6/uL Hgb (12.0-16.0) g/dL Hct (36-46) % MCV (80-100) fL MCH (26-34) PG MCHC (30-36) % RDW (11.6-14.8) % Plt Count (150-400) X10^3/uL Neut % (Auto) (50-75) % Lymph % (Auto) (25-40) % [place] % (Auto) (3-14) % Eos % (Auto) (2-4) % Baso % (Auto) (0-2) % Neut # (Auto) (6980-8719) /uL Lymph # (Auto) (7107-1917) /uL [place] # (Auto) (0-900) /uL Eos # (Auto) (0-450) /uL Baso # (Auto) (0-100) /uL ESR 5 (0-20) MM/HR D-Dimer 216 (<230) ng/mL Sodium (137-145) mmol/L Potassium (3.4-5.1) mmol/L Chloride (98-107) mmol/L Carbon Dioxide (22-32) mmol/L BUN (7-17) mg/dL Creatinine (0.52-1.04) mg/dL Estimated GFR (>60) mL/min BUN/Creatinine Ratio (6-22) Glucose (70-100) mg/dL Lactate (0.7-2.1) mmol/L Calcium (8.4-10.2) mg/dL Total Bilirubin (0.2-1.3) mg/dL AST (14-36) IU/L ALT (<35) IU/L Alkaline Phosphatase (38-126) U/L Total Creatine Kinase (30-135) U/L CK-MB (CK-2) (<2.37) ng/mL CK-MB (CK-2) Rel Index (1.5-5.0) % Troponin I (0.01-0.034) ng/mL C-Reactive Protein < 0.5 (<1.0) mg/dL NT-Pro-B Natriuret Pep (<125) pg/mL Total Protein (6.3-8.2) g/dL Albumin (3.5-5.0) g/dL Globulin (1.7-4.1) g/dL Albumin/Globulin Ratio (1.0-2.8) 03/31/20 Range/Units 14:59 WBC (4.5-11.0) X10^3/uL RBC (4.0-5.2) X10^6/uL Hgb (12.0-16.0) g/dL Hct (36-46) % MCV (80-100) fL MCH (26-34) PG MCHC (30-36) % RDW (11.6-14.8) % Plt Count (150-400) X10^3/uL Neut % (Auto) (50-75) % Lymph % (Auto) (25-40) % [place] % (Auto) (3-14) % Eos % (Auto) (2-4) % Baso % (Auto) (0-2) % Neut # (Auto) (5220-9454) /uL Lymph # (Auto) (3380-7465) /uL [place] # (Auto) (0-900) /uL Eos # (Auto) (0-450) /uL Baso # (Auto) (0-100) /uL ESR (0-20) MM/HR D-Dimer (<230) ng/mL Sodium (137-145) mmol/L Potassium (3.4-5.1) mmol/L Chloride (98-107) mmol/L Carbon Dioxide (22-32) mmol/L BUN (7-17) mg/dL Creatinine (0.52-1.04) mg/dL Estimated GFR (>60) mL/min BUN/Creatinine Ratio (6-22) Glucose (70-100) mg/dL Lactate (0.7-2.1) mmol/L Calcium (8.4-10.2) mg/dL Total Bilirubin (0.2-1.3) mg/dL AST (14-36) IU/L ALT (<35) IU/L Alkaline Phosphatase (38-126) U/L Total Creatine Kinase 126 (30-135) U/L CK-MB (CK-2) 0.76 (<2.37) ng/mL CK-MB (CK-2) Rel Index 0.6 L (1.5-5.0) % Troponin I < 0.012 (0.01-0.034) ng/mL C-Reactive Protein (<1.0) mg/dL NT-Pro-B Natriuret Pep (<125) pg/mL Total Protein (6.3-8.2) g/dL Albumin (3.5-5.0) g/dL Globulin (1.7-4.1) g/dL Albumin/Globulin Ratio (1.0-2.8) Imaging Data Chest x-ray: Radiologist's Impression: [address] [id number] ReportSigned Patient: Peggy Seaman LMR#: [id number]: 1990Acct:[id number]/Sex: 29 FDate of Service: 03/31/20Loc: EDAccession Number: [id number] Procedure: XR chest 1V Ordering Provider: Lopez Faremr PROCEDURE: XR CHEST 1V INDICATIONS: leg swelling, HF? TECHNIQUE: One view of the chest was acquired. COMPARISON: None. FINDINGS: Surgical changes and devices: None. Lungs and pleura: Lungs are clear. No pleural effusions or pneumothorax. Mediastinum: Mediastinal contours appear normal. Heart size is normal. Bones and chest wall: No suspicious bony lesions. Overlying soft tissues appear unremarkable. IMPRESSION: Normal portable chest, without findings of cardiomegaly or interstitial prominence to suggest or failure. Dictated by: Ant Rodgers M.D. on 03/31/2020 at 15:19 Approved by: Ant Rodgers M.D. on 03/31/2020 at 15:20 [facility] Narrative Medical decision making narrative: This is a 29-year-old female who has no previous cardiac condition but history of IVDU and currently smokes methamphe tamine and heroin presents to ED with chief complain of 3 day duration of lower extremity swelling and pressure/stretching like discomfort worse in left-sided without injury/trauma. Patient denies constitutional symptoms including fever or chills. She denies recent skin injuries. Physical exam appreciated generalize leg swelling in LLE worse in left ankle and foot. She then noticed right ankle and foot swelling. There is was diffused mild redness to dorsal aspect of left forefoot and generalize bilateral leg warmth to palpate. Given patient's history of using methamphetamine and heroin concern for heart failure, cardiac work up initiated. Also, mild redness and generalize warm appreciated during exam, CBC, lactate and other inflammatory indicators ordered. Wells' criteria for DVT score 1. D dimer is ordered. CBC shows no leukocytosis, normal lactate, CRP. ESR normal. D dimer is negative and it's <216. Cardiac enzyme is pending. ProBNP is negative. Unremarkable chemistry test except mildly elevated ALT. She does not have any abdominal discomfort, nausea or vomiting. Patient is afebrile, slightly tachycardia which improved during ED course. Cardiac enzymes and CPK negative. Physical exam likely cellulitis and will treat with Bactrim DS for 7 day course. Patient advised to use warm pack and [id number] Tylenol and or Motrin as needed for discomfort. Return precautions discussed with patient and she verbalized understanding in agreement with the treatment plan. [facility] phone number provided to elect PCP. Dr. Keller evaluated the patient at bedside as well. <Isela Keller, DO - Last Filed: 04/03/20 10:05> Lab Data Labs: Lab Results 03/31/20 03/31/20 03/31/20 Range/Units 14:59 14:59 14:59 WBC 9.9 (4.5-11.0) X10^3/uL RBC 4.60 (4.0-5.2) X10^6/uL Hgb 13.5 (12.0-16.0) g/dL Hct 42.5 (36-46) % MCV 92.4 (80-100) fL MCH 29.4 (26-34) PG MCHC 31.8 (30-36) % RDW 13.0 (11.6-14.8) % Plt Count 305 (150-400) X10^3/uL Neut % (Auto) 61.6 (50-75) % Lymph % (Auto) 26.4 (25-40) % [place] % (Auto) 9.8 (3-14) % Eos % (Auto) 1.9 L (2-4) % Baso % (Auto) 0.3 (0-2) % Neut # (Auto) 6100 (3884-3248) /uL Lymph # (Auto) 2600 (7639-1603) /uL [place] # (Auto) 1000 H (0-900) /uL Eos # (Auto) 200 (0-450) /uL Baso # (Auto) 0 (0-100) /uL ESR (0-20) MM/HR D-Dimer (<230) ng/mL Sodium 138 (137-145) mmol/L Potassium 3.6 (3.4-5.1) mmol/L Chloride 101 (98-107) mmol/L Carbon Dioxide 32 (22-32) mmol/L BUN 18 H (7-17) mg/dL Creatinine 0.61 (0.52-1.04) mg/dL Estimated GFR > 60.0 (>60) mL/min BUN/Creatinine Ratio 29.5 H (6-22) Glucose 96 (70-100) mg/dL Lactate 1.4 (0.7-2.1) mmol/L Calcium 8.9 (8.4-10.2) mg/dL Total Bilirubin 0.8 (0.2-1.3) mg/dL AST 36 (14-36) IU/L ALT 43 H (<35) IU/L Alkaline Phosphatase 59 (38-126) U/L Total Creatine Kinase (30-135) U/L CK-MB (CK-2) (<2.37) ng/mL CK-MB (CK-2) Rel Index (1.5-5.0) % Troponin I (0.01-0.034) ng/mL C-Reactive Protein (<1.0) mg/dL NT-Pro-B Natriuret Pep 20 (<125) pg/mL Total Protein 7.9 (6.3-8.2) g/dL Albumin 4.4 (3.5-5.0) g/dL Globulin 3.5 (1.7-4.1) g/dL Albumin/Globulin Ratio 1.3 (1.0-2.8) 03/31/20 03/31/20 03/31/20 Range/Units 14:59 14:59 14:59 WBC (4.5-11.0) X10^3/uL RBC (4.0-5.2) X10^6/uL Hgb (12.0-16.0) g/dL Hct (36-46) % MCV (80-100) fL MCH (26-34) PG MCHC (30-36) % RDW (11.6-14.8) % Plt Count (150-400) X10^3/uL Neut % (Auto) (50-75) % Lymph % (Auto) (25-40) % [place] % (Auto) (3-14) % Eos % (Auto) (2-4) % Baso % (Auto) (0-2) % Neut # (Auto) (5176-1944) /uL Lymph # (Auto) (0644-7237) /uL [place] # (Auto) (0-900) /uL Eos # (Auto) (0-450) /uL Baso # (Auto) (0-100) /uL ESR 5 (0-20) MM/HR D-Dimer 216 (<230) ng/mL Sodium (137-145) mmol/L Potassium (3.4-5.1) mmol/L Chloride (98-107) mmol/L Carbon Dioxide (22-32) mmol/L BUN (7-17) mg/dL Creatinine (0.52-1.04) mg/dL Estimated GFR (>60) mL/min BUN/Creatinine Ratio (6-22) Glucose (70-100) mg/dL Lactate (0.7-2.1) mmol/L Calcium (8.4-10.2) mg/dL Total Bilirubin (0.2-1.3) mg/dL AST (14-36) IU/L ALT (<35) IU/L Alkaline Phosphatase (38-126) U/L Total Creatine Kinase (30-135) U/L CK-MB (CK-2) (<2.37) ng/mL CK-MB (CK-2) Rel Index (1.5-5.0) % Troponin I (0.01-0.034) ng/mL C-Reactive Protein < 0.5 (<1.0) mg/dL NT-Pro-B Natriuret Pep (<125) pg/mL Total Protein (6.3-8.2) g/dL Albumin (3.5-5.0) g/dL Globulin (1.7-4.1) g/dL Albumin/Globulin Ratio (1.0-2.8) 03/31/20 Range/Units 14:59 WBC (4.5-11.0) X10^3/uL RBC (4.0-5.2) X10^6/uL Hgb (12.0-16.0) g/dL Hct (36-46) % MCV (80-100) fL MCH (26-34) PG MCHC (30-36) % RDW (11.6-14.8) % Plt Count (150-400) X10^3/uL Neut % (Auto) (50-75) % Lymph % (Auto) (25-40) % [place] % (Auto) (3-14) % Eos % (Auto) (2-4) % Baso % (Auto) (0-2) % Neut # (Auto) (4885-3948) /uL Lymph # (Auto) (9617-6338) /uL [place] # (Auto) (0-900) /uL Eos # (Auto) (0-450) /uL Baso # (Auto) (0-100) /uL ESR (0-20) MM/HR D-Dimer (<230) ng/mL Sodium (137-145) mmol/L Potassium (3.4-5.1) mmol/L Chloride (98-107) mmol/L Carbon Dioxide (22-32) mmol/L BUN (7-17) mg/dL Creatinine (0.52-1.04) mg/dL Estimated GFR (>60) mL/min BUN/Creatinine Ratio (6-22) Glucose (70-100) mg/dL Lactate (0.7-2.1) mmol/L Calcium (8.4-10.2) mg/dL Total Bilirubin (0.2-1.3) mg/dL AST (14-36) IU/L ALT (<35) IU/L Alkaline Phosphatase (38-126) U/L Total Creatine Kinase 126 (30-135) U/L CK-MB (CK-2) 0.76 (<2.37) ng/mL CK-MB (CK-2) Rel Index 0.6 L (1.5-5.0) % Troponin I < 0.012 (0.01-0.034) ng/mL C-Reactive Protein (<1.0) mg/dL NT-Pro-B Natriuret Pep (<125) pg/mL Total Protein (6.3-8.2) g/dL Albumin (3.5-5.0) g/dL Globulin (1.7-4.1) g/dL Albumin/Globulin Ratio (1.0-2.8) Discharge Plan Departure Patient Disposition: Home Clinical Impression: Cellulitis Qualifiers: Site of cellulitis: extremity Site of cellulitis of extremity: lower extremity Laterality: left Qualified Code(s): L03.116 - Cellulitis of left lower limb Instructions: DI for Cellulitis -- Adult Activity Restrictions/Additional Instructions: You have been diagnosed with [cellulitis in left lower extremity. Labs are assuring and no indications for heart failure, blood clots, rhabdomyolysis.]. What to do: *Take your medications as directed. Please start Bactrim DS twice a day for next 7 days. Please use warm pack on affected site to help with healing. You can take [id number] Tylenol and or Motrin as needed for discomfort. You were given IV Motrin like product in ED. *Follow up with your primary care provider in 2-3 days, call for an appointment. Let them know you were seen in the ED and that we asked you to be seen in follow up. *Return to ED if you have any new, worsening, or concerning symptoms, such as [chest pain, breathing difficulty, high fever, unable to tolerate medications, tingling/numbness/weakness to affected leg or any acute concerns]. Prescriptions: New sulfamethoxazole-trimethoprim [Bactrim DS] 800-160 mg tablet 1 tab PO BID 7 Days Qty: 14 RF: 0 Referrals: [facility] [Outside] <Isela Keller DO - Last Filed: 04/03/20 10:05> Cosign ED Attending Tolu Attestation: I was immediately available in the department for consultation. Documentation has been reviewed. I agree with assessment and plan.
--- NOTE | 2020-03-31 15:41 | DI.RAD.S_ITS ---
PROCEDURE: XR CHEST 1V INDICATIONS: leg swelling, HF? TECHNIQUE: One view of the chest was acquired. COMPARISON: None. FINDINGS: Surgical changes and devices: None. Lungs and pleura: Lungs are clear. No pleural effusions or pneumothorax. Mediastinum: Mediastinal contours appear normal. Heart size is normal. Bones and chest wall: No suspicious bony lesions. Overlying soft tissues appear unremarkable. IMPRESSION: Normal portable chest, without findings of cardiomegaly or interstitial prominence to suggest or failure. Dictated by: Ant Rodgers M.D. on 03/31/2020 at 15:19 Approved by: Ant Rodgers M.D. on 03/31/2020 at 15:20
[2020-03-31 15:43] LABS: Add Manual Diff / Slide Review NO; Basophils Absolute Auto 0 /uL (0-100); Basophils Percent Auto 0.3 % (0-2); Eosinophils Absolute Auto 200 /uL (0-450); Eosinophils Percent Auto 1.9 % (2-4); Hematocrit 42.5 % (36-46); Hemoglobin 13.5 g/dL (12.0-16.0); Lymphocytes Absolute Auto 2600 /uL (1100-4500); Lymphocytes Percent Auto 26.4 % (25-40); Mean Corpuscular HGB Conc 31.8 % (30-36); Mean Corpuscular Hemoglobin 29.4 PG (26-34); Mean Corpuscular Volume 92.4 fL (80-100); Monocytes Absolute Auto 1000 /uL (0-900); Monocytes Percent Auto 9.8 % (3-14); Neutrophils Absolute Auto 6100 /uL (1500-7000); Neutrophils Percent Auto 61.6 % (50-75); Platelet Count 305 X10^3/uL (150-400); White Blood Cell Count 9.9 X10^3/uL (4.5-11.0)
[2020-03-31 15:46] LABS: D Dimer 216 ng/mL (<230)
[2020-03-31 15:52] LABS: Lactate (Lactic Acid) 1.4 mmol/L (0.7-2.1)
[2020-03-31 15:53] LABS: Alanine Aminotransferase 43 IU/L (<35); Albumin 4.4 g/dL (3.5-5.0); Albumin Globulin Ratio 1.3 (1.0-2.8); Alkaline Phosphatase 59 U/L (38-126); Aspartate Aminotransferase 36 IU/L (14-36); BUN Creatinine Ratio 29.5 (6-22); Bilirubin Total 0.8 mg/dL (0.2-1.3); Blood Urea Nitrogen 18 mg/dL (7-17); Calcium 8.9 mg/dL (8.4-10.2); Carbon Dioxide 32 mmol/L (22-32); Chloride 101 mmol/L (98-107); Estimated Glomerular Filt Rate > 60.0 mL/min (>60); Globulin 3.5 g/dL (1.7-4.1); Glucose 96 mg/dL (70-100); HEMOLYSIS < 15 (0-50); Potassium 3.6 mmol/L (3.4-5.1); Sodium 138 mmol/L (137-145); Total Protein 7.9 g/dL (6.3-8.2)
[2020-03-31 16:01] LABS: C-Reactive Protein Quant < 0.5 mg/dL (<1.0); NT-proBNP (BNP-Adult 18+) 20 pg/mL (<125)
[2020-03-31 16:17] LABS: Creatine Kinase 126 U/L (30-135)
[2020-03-31 16:18] LABS: Erythrocyte Sedimentation Rate 5 MM/HR (0-20)
[2020-03-31 16:25] VITALS: PULSE 100; O2SAT 100
[2020-03-31 16:30] VITALS: BP 99/52; PULSE 89; O2SAT 98
[2020-03-31 16:30] LABS: Troponin I < 0.012 ng/mL (0.01-0.034)
[2020-03-31 16:33] LABS: CKMB % Relative Index 0.6 % (1.5-5.0); Creatine Kinase MB 0.76 ng/mL (<2.37)
[2020-03-31] MEDS: TRIMETH/SULFA 160/800 PREPACK 1 BOTTLE MISC (16:49)
[2020-03-31] MEDS: KETOROLAC 60 MG/2 ML VIAL 15 MG IV (16:49)
== END 2020-03-31 17:01 | disposition home or self-care (01) ==
PROVIDERS: Emergency Medicine; Emergency Provider Nurse Practitioner Family
DX: L03.116 Cellulitis of left lower limb (principal); R00.0 Tachycardia, unspecified; Z87.898 Personal history of other specified conditions
CPT/HCPCS: 36415; 71045; 80053; 82550; 82553; 83605; 83880; 84484; 85025; 85379; 85651; 86140; 93005; 96374; 99284; J1885

== ENCOUNTER 2021-02-08 12:57 | Emergency (ER) | payer OTHER, MEDICAID, SELFPAY ==
[2019-06-05 09:58] VITALS: BMI 30.4
[2021-02-08 13:36] VITALS: BP 127/74; PULSE 103; RESP 18; TEMP 36.6; O2SAT 100; BMI 29.0
[2021-02-08 14:07] LABS: Strep Grp A by PCR Rapid Positive (Negative)
--- NOTE | 2021-02-08 15:12 | DI.RAD.S_ITS ---
PROCEDURE: XR CHEST 1V INDICATIONS: cough TECHNIQUE: One view of the chest was acquired. COMPARISON: [facility], CR, XR CHEST 1V, 03/31/2020, 15:53. FINDINGS: Surgical changes and devices: None. Lungs and pleura: Mild patchy bilateral perihilar and basilar opacity. No pleural effusions or pneumothorax. Mediastinum: Mediastinal contours appear normal. Heart size is normal. Bones and chest wall: No suspicious bony lesions. Overlying soft tissues appear unremarkable. IMPRESSION: Mild atypical pneumonia. Dictated by: Bianca Boudreaux M.D. on 02/08/2021 at 14:36 Approved by: Bianca Boudreaux M.D. on 02/08/2021 at 14:37
[2021-02-08] MEDS: CLINDAMYCIN 150 MG CAPSULE 450 MG PO (15:13)
[2021-02-08] MEDS: DEXAMETHASONE 10 MG/ML VIAL PO (15:14)
[2021-02-08] MEDS: ALBUTEROL HFA PREPACK 1 BOX MISC (15:16)
--- NOTE | 2021-02-08 15:28 | ED_ITS ---
HPI - URI/Sore Throat <GLENDY Friend - Last Filed: 02/08/21 17:01> General Chief Complaint: Upper Respiratory Symptoms Stated Complaint: Sore throat, diff breathing, cough, infection r. l Time Seen by Provider: 02/08/21 14:50 Source: patient Mode of arrival: Ambulatory History of Present Illness HPI Narrative: 30-year-old female presents to emergency department today for throat pain, she is coughing up some thick white mucus, and is concerned about a staph infection on her right lower extremity because there was an abscess tear an it was red yesterday. She reports that she has had these symptoms for at least 5 days. She reports that her LE abscess has started draining a few days ago and does not need lanced at this time. Patient denies any recent fever, abdominal pain, chest pain, difficulty breathing, difficulty swallowing, endorses having pain with swallowing. Patient reports that she is homeless, she does smoke drugs and tobacco however she does not feel like the mucus she is coughing up is from that. Patient reports that she is concerned about where she is going to go tonight. Patient does endorse using meth and heroin, as recently as last. Able to tolerate fluids by mouth: Yes Related Data Previous Rx's Medication Instructions Recorded albuterol sulfate 90 mcg/actuation 1 inh INHALATION QID PRN #6.7 g 02/08/21 aerosol inhaler amoxicillin 875 mg-potassium 1 tab PO BID 10 Days #20 tab 02/08/21 clavulanate 125 mg tablet (Augmentin) clindamycin HCl 150 mg capsule 450 mg PO TID 7 Days #63 cap 02/08/21 meloxicam 7.5 mg tablet 7.5 mg PO DAILY PRN #14 tab 02/08/21 Allergies Allergy/AdvReac Type Severity Reaction Status Date / Time zolpidem [From Ambien] AdvReac Intermediate Irritable Verified 02/08/21 13:43 Review of Systems <GLENDY Friend - Last Filed: 02/08/21 17:01> Review of Systems Narrative: General: denies fever, chills Head/Neck: denies headache, neck pain, complains of throat pain Eyes: denies visual changes, eye pain Cardio: denies chest pain, palpitations Respiratory: denies shortness of breath, endorses have a productive cough GI: denies abdominal pain, nausea, vomiting, or diarrhea : denies dysuria, hematuria MSK: denies joint pain, muscle weakness Skin: denies rash, itching, has a draining abscess to her right lower extremity Neuro: denies numbness, tingling Patient History <GLENDY Friend - Last Filed: 02/08/21 17:01> Medical History (Updated 02/08/21 @ 17:00 by GLENDY Friend) Asthma Drug abuse Surgical History History of appendectomy Social History household members: other Smoking Status: Current every day smoker alcohol intake: current Smoking Status: Current every day smoker tobacco type: cigarettes alcohol intake frequency: 0-2 drinks per day Substance Use Type: marijuana, heroin and methamphetamine Exam <GLENDY Friend - Last Filed: 02/08/21 17:01> Narrative Exam Narrative: Independently reviewed vitals signs and nursing notes. General: Awake, alert, nontoxic, no cardiorespiratory distress Head/Neck: Atraumatic, neck full range of motion no lymphadenopathy or masses Eyes: EOMI, conjunctiva normal Nose: nares patent, no rhinorrhea Mouth/Throat: moist mucus membranes, posterior pharynx erythematous with mild tonsillar exudate, no oral lesions Cardio: Regular rate and rhythm, no peripheral edema Respiratory: respirations unlabored with expiratory wheezes bilaterally, no stridor, or rales or retractions. GI: Abdomen soft, nontender MSK: Moves all extremities, neurovascularly intact Skin: Normal capillary refill, no rash, approximate 1 in x 1 in draining abscess which is currently flat to the medial aspect her right lower extremity. She had this covered with a Band-Aid. The center of the wound has purulent drainage, without any surrounding erythema, edema, or streaking. Neuro: Normal speech and cognition, normal gait Initial Vital Signs Initial Vital Signs: Vital Signs Temperature 97.9 F 02/08/21 13:36 Pulse Rate 103 H 02/08/21 13:36 Respiratory Rate 18 02/08/21 13:36 Blood Pressure 127/74 02/08/21 13:36 Pulse Oximetry 100 12/11/21 13:36 Course <GLENDY Friend - Last Filed: 02/08/21 17:01> Orders Ordered: ED Orders 02/08/21 13:47 Strep Grp A by PCR Rapid Stat 02/08/21 15:12 XR chest 1V Stat 02/08/21 15:41 COVID19 -Nasal swab/Pre-Proc Stat Discontinued Medications Albuterol (Albuterol Hfa Prepack) 1 box MISC SEEINSTR ONE Stop: 02/08/21 15:11 Last Admin: 02/08/21 15:16 Dose: 1 box Documented by: LISA Albuterol/Ipratropium (Albuterol/Ipratropium 3 Ml Ampul) 3 ml INH NOW ONE Stop: 02/08/21 15:11 Last Admin: 02/08/21 15:34 Dose: 3 ml Documented by: WESLEY Clindamycin HCl (Clindamycin 150 Mg Capsule) 450 mg PO NOW ONE Stop: 02/08/21 15:03 Last Admin: 02/08/21 15:13 Dose: 450 mg Documented by: LISA Dexamethasone (Dexamethasone 10 Mg/Ml Vial) 10 mg PO NOW ONE Stop: 02/08/21 14:51 Last Admin: 02/08/21 15:14 Dose: 10 mg Documented by: LISA Penicillin V Potassium (Penicillin Vk 250 Mg/5 Ml Susp) 500 mg PO NOW ONE Stop: 02/08/21 14:51 Last Admin: 02/08/21 15:12 Dose: Not Given Documented by: ADOTEM Vital Signs Vital signs: Vital Signs - 8 hr 02/08/21 13:36 02/08/21 15:34 02/08/21 17:06 Temperature 97.9 F Pulse Rate 103 H 102 H 77 Respiratory Rate 18 20 Blood Pressure 127/74 117/71 Pulse Oximetry 100 99 99 MDM - URI/Sore Throat <GLENDY Friend - Last Filed: 02/08/21 17:01> Lab Data Labs: Lab Results 02/08/21 02/08/21 Range/Units 13:47 15:41 SARS-CoV-2 (PCR) Negative (Negative) Group A Strep (PCR) Positive H (Negative) Imaging Data Chest x-ray: Radiologist's Impression: PROCEDURE:? XR CHEST 1V ? INDICATIONS:? cough ? TECHNIQUE:? One view of the chest was acquired.? ? COMPARISON:? [facility], CR, XR CHEST 1V, 03/31/2020, 15:53. ? FINDINGS:? ? Surgical changes and devices:? None.? ? Lungs and pleura:? Mild patchy bilateral perihilar and basilar opacity.? No pleural effusions or pneumothorax.? ? Mediastinum:? Mediastinal contours appear normal.? Heart size is normal.? ? Bones and chest wall:? No suspicious bony lesions.? Overlying soft tissues appear unremarkable.? ? IMPRESSION:? Mild atypical pneumonia. ? ? Dictated by: Bianca Boudreaux M.D. on 02/08/2021 at 14:36 ? ? Approved by: Bianca Boudreaux M.D. on 02/08/2021 at 14:37 ? MDM Narrative Medical decision making narrative: 30-year-old female presents to the emergency department with throat pain, right lower extremity wound, and productive cough. On exam patient did have erythematous posterior pharynx with mild a day, this was tested for strep a and was positive. Her right lower extremity wound is currently draining without signs of cellulitis or spreading infection. She has expiratory wheezes on her cardiopulmonary exam, she does not have tachycardia at that time, her heart rate was less than 90, she reports she is out of her inhaler and has history of asthma. She was given a DuoNeb nebulizer and Decadron and reported feeling much better afterwards. Chest x-ray shows mild patchy bilateral perihilar and basilar opacities without effusion or pneumothorax. She was prescribed Augmentin, meloxicam for pain, and a refill an albuterol inhaler. She was given clindamycin for both her strep and her abscess prior to seen x-ray results showing her pneumonia. Antibiotic choice was changed at that time patient reports she is able to afford these medications because her insurance will pay for the med she is going to walk to [facility] to pick them up. Patient does not have a primary care provider, instructed her to follow-up at the walk-in clinic or return to the emergency department if she has any worsening of the symptoms. She did not have any hypoxia, respiratory distress, she did not have any wheezing after her neb either. Patient is appropriate and amenable to discharge home. Vital signs are stable on repeat examination is unremarkable. Patient has been informed of results. Patient has been given strict return to ER precautions for any new or worsening symptoms. Patient understands to follow up closely with outpatient providers as instructed. Patient understands plan and agrees to discharge home. All questions and concerns answered at this time. Discharge Plan Departure Patient Disposition: Home Clinical Impression: Strep pharyngitis, Cellulitis and abscess of leg, Pneumonia Instructions: DI for Strep Throat, DI for Wound Infection, DI for Atypical Pneumonia Activity Restrictions/Additional Instructions: *You have been diagnosed with strep throat, cellulitis infection of your right lower leg, and pneumonia involving both of your lungs. Your pneumonia is mild, but that explains why you have been coughing up productive sputum. Please pick appear prescriptions today, and go ahead and take the Augmentin tonight when you get there. I hope you feel better soon, you can use the meloxicam for pain, do not take more than 1 per day and take it with food. It is a strong anti- inflammatory which should help your throat feel better to. *What to do: *Please continue to take your regular medications as directed. [x ] New medication prescriptions sent to your pharmacy: [[facility]] [ ] New medication written as a paper prescription [ ] No new medications given *Please follow up with your primary care provider in 2-3 days, call for an appointment. Let them know you were seen in the Emergency Department and that we ask that you be seen in follow up. We will electronically transmit a record of today's note if your PCP is in our system *If you do not have a primary care provider please contact the [facility] Resource line at [phone]. They will ask some questions about your medical history and help get you set up with a doctor in the community. *Return to Emergency Department if you should have any new, worsening or concerning symptoms, such as [fever greater than 101F, chills, worsening pain, persistent vomiting or other bothersome symptoms] Prescriptions: New albuterol sulfate 90 mcg/actuation HFA aerosol inhaler 1 inh inhalation QID PRN (Reason: shortness of breath or wheezing) Qty: 6.7 0RF clindamycin HCl 150 mg capsule 450 mg PO TID 7 Days Qty: 63 0RF meloxicam 7.5 mg tablet 7.5 mg PO DAILY PRN (Reason: pain) Qty: 14 0RF amoxicillin-pot clavulanate [Augmentin] 875-125 mg tablet 1 tab PO BID 10 Days Qty: 20 0RF
[2021-02-08 15:34] VITALS: PULSE 102; RESP 20; O2SAT 99
[2021-02-08] MEDS: ALBUTEROL/IPRATROPIUM 3 ML AMPUL INH (15:34)
[2021-02-08 16:59] LABS: COVID19 -Nasal RAPID Negative (Negative)
[2021-02-08 17:06] VITALS: BP 117/71; PULSE 77; O2SAT 99
== END 2021-02-08 17:15 | disposition home or self-care (01) ==
PROVIDERS: Emergency Medicine; Emergency Provider Nurse Practitioner Critical Care Medicine
DX: J02.0 Streptococcal pharyngitis (principal); L03.115 Cellulitis of right lower limb; L02.415 Cutaneous abscess of right lower limb; J18.9 Pneumonia, unspecified organism; Z20.822 Contact with and (suspected) exposure to COVID-19; F17.210 Nicotine dependence, cigarettes, uncomplicated
CPT/HCPCS: 71045; 87635; 87651; 94640; 99283; C9803; J1100

== ENCOUNTER 2021-04-27 01:03 | Emergency (ER) | payer OTHER, MEDICAID, SELFPAY ==
[2019-06-05 09:58] VITALS: BMI 30.4
--- NOTE | 2021-04-27 01:11 | ED.SKABFB ---
HPI - Skin/Abscess/Foreign Bdy General Chief complaint: Skin/Abscess/Foreign Body Stated complaint: Abscess in right armpit x3 days Time Seen by Provider: 04/27/21 01:06 History of Present Illness HPI narrative: 30-year-old femaleDaily smoker with history of IV drug abuse including recent heroin and methamphetamines in her left antecubital fossa presents with a chief complaint of severe pain and swelling in her right axilla over the past 3 days. She has had chills but denies any fever nor nausea or vomiting. She has severe pain with any motion. She has had skin infections in the past. Related Data Previous Rx's Medication Instructions Recorded albuterol sulfate 90 mcg/actuation 1 inh INHALATION QID PRN #6.7 g 02/08/21 aerosol inhaler meloxicam 7.5 mg tablet 7.5 mg PO DAILY PRN #14 tab 02/08/21 doxycycline hyclate 100 mg tablet 100 mg PO BID #20 tab 04/27/21 Allergies Allergy/AdvReac Type Severity Reaction Status Date / Time zolpidem [From Ambien] AdvReac Intermediate Irritable Verified 02/08/21 13:43 Review of Systems Review of Systems Narrative: GENERAL: Denies chills, fatigue, malaise, fever, sweats. HEENT: Denies sinus pain, ear pain, sore throat, difficulty swallowing, dizziness. RESPIRATORY: Denies dyspnea, cough, wheezing, hemoptysis, sputum. CARDIOVASCULAR: Denies chest pain, palpitations, orthopnea, edema, GASTROINTESTINAL: Denies nausea, vomiting, abdominal pain, diarrhea, constipation, melena. : Denies dysuria, frequency, incontinence, hematuria, urinary retention. MUSCULOSKELETAL: denies weakness, joint pain, or bony pain SKIN: See HPI NEUROLOGIC: Denies weakness, headache, numbness, change in speech, confusion, seizures, incoordination. PSYCHIATRIC: No concerning psychosocial issues. 12 point review of systems is negative except for those stated above Patient History Medical History (Updated 04/27/21 @ 01:49 by Bakari Malik DO) Asthma Drug abuse Surgical History History of appendectomy Social History household members: other Smoking Status: Current every day smoker alcohol intake: current Smoking Status: Current every day smoker tobacco type: cigarettes alcohol intake frequency: 0-2 drinks per day Substance Use Type: marijuana, heroin and methamphetamine Exam Narrative Exam Narrative: GENERAL: [30] year old patient appears stated age. Well-developed patient, in mild distress. Obviously in pain HEAD: Atraumatic. Normocephalic. EYES: Pupils equal round and reactive. Extraocular motions intact. No scleral icterus. No injection or drainage. ENT: Nose without bleeding, purulent drainage. Throat without erythema, tonsillar hypertrophy or exudate. Airway patent. NECK: Trachea midline. Non tender CARDIOVASCULAR: Regular rate and rhythm without murmurs, gallops, or rubs. RESPIRATORY: Clear to auscultation. Breath sounds equal bilaterally. No wheezes, rales, or rhonchi. GASTROINTESTINAL: Abdomen soft, non-tender, nondistended. EXTREMITIES: No edema or joint tenderness. BACK: Nontender without deformity or crepitance. No flank tenderness. NEURO: AOx3. SKIN: 2 x 2 cm area of induration and fluctuance with erythema and significant tenderness and right axilla with some surrounding induration. Otherwise, No rash or erythema of visible areas Initial Vital Signs Initial Vital Signs: Vital Signs Temperature 97.9 F 04/27/21 01:25 Pulse Rate 87 04/27/21 01:25 Respiratory Rate 17 04/27/21 01:25 Blood Pressure 116/73 04/27/21 01:25 Pulse Oximetry 100 04/27/21 01:25 Procedures Abscess I/D I&D #1: Site: upper extremity (R axilla) Side (if applicable): right Sedation/analgesia: midazolam Local Anesthetic: lidocaine 1% and with bicarb Amount of anesthesia used (mL): 4 Technique: needle aspiration and incised with #11 blade Amount of fluid expressed (mL): 10 Irrigation: No Course Orders Ordered: ED Orders 04/27/21 02:34 Wound Culture and Gram Stain Stat Discontinued Medications Doxycycline Hyclate (Doxycycline Hyclate 100 Mg Tablet) 100 mg PO NOW ONE Stop: 04/27/21 01:38 Last Admin: 04/27/21 01:58 Dose: 100 mg Documented by: JORGE LUIS Lidocaine/Sodium Bicarbonate (Lido 1%/Sod Bicarb 8.4% (10ml) 10 Ml Syringe) 10 ml INJ NOW ONE Stop: 04/27/21 01:38 Last Admin: 04/27/21 01:59 Dose: 10 ml Documented by: JORGE LUIS Midazolam HCl (Midazolam 5 Mg/Ml Vial) 10 mg NASAL NOW ONE Stop: 04/27/21 01:42 Last Admin: 04/27/21 01:58 Dose: 10 mg Documented by: JORGE LUIS Vital Signs Vital signs: Vital Signs - 8 hr 04/27/21 01:25 Temperature 97.9 F Pulse Rate 87 Respiratory Rate 17 Blood Pressure 116/73 Pulse Oximetry 100 Discharge Plan Departure Patient Disposition: Home Clinical Impression: Abscess of skin or subcutaneous tissue Instructions: DI for Skin Abscess Activity Restrictions/Additional Instructions: *You have been diagnosed with [right axilla superficial cutaneous abscess *What to do: *Please continue to take your regular medications as directed. [x ] New medication prescriptions sent to your pharmacy: [[facility] ] [ ] New medication written as a paper prescription [ ] No new medications given *Please follow up with your primary care provider in 2-3 days, call for an appointment. Let them know you were seen in the Emergency Department and that we ask that you be seen in follow up. We will electronically transmit a record of today's note if your PCP is in our system *If you do not have a primary care provider please contact the [facility] Resource line at [phone]. They will ask some questions about your medical history and help get you set up with a doctor in the community. *Return to Emergency Department if you should have any new, worsening or concerning symptoms, such as [fever greater than 101 F, shaking chills, worsening pain, persistent vomiting or other bothersome symptoms] Prescriptions: New doxycycline hyclate 100 mg tablet 100 mg PO BID Qty: 20 0RF No Action albuterol sulfate 90 mcg/actuation HFA aerosol inhaler 1 inh inhalation QID PRN (Reason: shortness of breath or wheezing) Qty: 6.7 0RF meloxicam 7.5 mg tablet 7.5 mg PO DAILY PRN (Reason: pain) Qty: 14 0RF
[2021-04-27 01:25] VITALS: BP 116/73; PULSE 87; RESP 17; TEMP 36.6; O2SAT 100; BMI 32.8
[2021-04-27] MEDS: DOXYCYCLINE HYCLATE 100 MG TABLET PO (01:58)
[2021-04-27] MEDS: MIDAZOLAM 5 MG/ML VIAL 10 MG NASAL (01:58)
[2021-04-27] MEDS: LIDO 1%/SOD BICARB 8.4% (10ML) 10 ML SYRINGE INJ (01:59)
--- NOTE | 2021-04-27 02:18 | PC.NURSE ---
Pt tolerated I&D well after intranasal versed. SpO2 drifting into 80's while resting afterwards; 2 liters O2 applied by NC. Pt breathes deeply with encouragement.
[2021-04-27 05:14] VITALS: BP 100/60; PULSE 60; RESP 15; O2SAT 96
--- NOTE | 2021-04-29 07:05 | ED.SKABFB ---
HPI - Skin/Abscess/Foreign Bdy General Chief complaint: Skin/Abscess/Foreign Body Stated complaint: Abscess in right armpit x3 days Time Seen by Provider: 04/27/21 01:06 Source: patient Mode of arrival: Ambulatory Limitations: no limitations History of Present Illness HPI narrative: 30-year-old female daily smoker with history of IV drug abuse presents with her significant other and a chief complaint of a painful red lump consistent with abscess in her right armpit for the past few days. She states that she has had MRSA in the past. She denies any systemic symptoms such as fever, chills nor nausea or vomiting. She has significant pain with palpation or motion and improvement with rest. Related Data Previous Rx's Medication Instructions Recorded albuterol sulfate 90 mcg/actuation 1 inh INHALATION QID PRN #6.7 g 02/08/21 aerosol inhaler meloxicam 7.5 mg tablet 7.5 mg PO DAILY PRN #14 tab 02/08/21 doxycycline hyclate 100 mg tablet 100 mg PO BID #20 tab 04/27/21 Allergies Allergy/AdvReac Type Severity Reaction Status Date / Time zolpidem [From Ambien] AdvReac Intermediate Irritable Verified 02/08/21 13:43 Review of Systems Review of Systems Narrative: GENERAL: Denies chills, fatigue, malaise, fever, sweats. HEENT: Denies sinus pain, ear pain, sore throat, difficulty swallowing, dizziness. RESPIRATORY: Denies dyspnea, cough, wheezing, hemoptysis, sputum. CARDIOVASCULAR: Denies chest pain, palpitations, orthopnea, edema, GASTROINTESTINAL: Denies nausea, vomiting, abdominal pain, diarrhea, constipation, melena. : Denies dysuria, frequency, incontinence, hematuria, urinary retention. MUSCULOSKELETAL: denies weakness, joint pain, or bony pain SKIN: See HPI NEUROLOGIC: Denies weakness, headache, numbness, change in speech, confusion, seizures, incoordination. PSYCHIATRIC: No concerning psychosocial issues. 12 point review of systems is negative except for those stated above Patient History Medical History (Updated 04/27/21 @ 01:49 by Bakari Malik DO) Asthma Drug abuse Surgical History History of appendectomy Social History household members: other Smoking Status: Current every day smoker alcohol intake: current Smoking Status: Current every day smoker tobacco type: cigarettes alcohol intake frequency: 0-2 drinks per day Substance Use Type: marijuana, heroin and methamphetamine Exam Narrative Exam Narrative: GENERAL: [30] year old patient appears stated age. Well-developed patient, in mild distress. HEAD: Atraumatic. Normocephalic. EYES: Pupils equal round and reactive. Extraocular motions intact. No scleral icterus. No injection or drainage. ENT: Nose without bleeding, purulent drainage. Throat without erythema, tonsillar hypertrophy or exudate. Airway patent. NECK: Trachea midline. Non tender CARDIOVASCULAR: Regular rate and rhythm without murmurs, gallops, or rubs. RESPIRATORY: Clear to auscultation. Breath sounds equal bilaterally. No wheezes, rales, or rhonchi. GASTROINTESTINAL: Abdomen soft, non-tender, nondistended. EXTREMITIES: No edema or joint tenderness. BACK: Nontender without deformity or crepitance. No flank tenderness. NEURO: AOx3. SKIN: 2 x 2 cm area of fluctuance, erythema and significant tenderness and right axilla with surrounding erythema and induration Initial Vital Signs Initial Vital Signs: Vital Signs Temperature 97.9 F 04/27/21 01:25 Pulse Rate 87 04/27/21 01:25 Respiratory Rate 17 04/27/21 01:25 Blood Pressure 116/73 04/27/21 01:25 Pulse Oximetry 100 04/27/21 01:25 Procedures Abscess I/D I&D #1: Site: upper extremity (axilla) Side (if applicable): right Sedation/analgesia: midazolam Local Anesthetic: lidocaine 1% and with bicarb Amount of anesthesia used (mL): 4 Technique: incised with #11 blade Amount of fluid expressed (mL): 15 Irrigation: Yes Packing used?: none Course Orders Ordered: Discontinued Medications Doxycycline Hyclate (Doxycycline Hyclate 100 Mg Tablet) 100 mg PO NOW ONE Stop: 04/27/21 01:38 Last Admin: 04/27/21 01:58 Dose: 100 mg Documented by: JORGE LUIS Lidocaine/Sodium Bicarbonate (Lido 1%/Sod Bicarb 8.4% (10ml) 10 Ml Syringe) 10 ml INJ NOW ONE Stop: 04/27/21 01:38 Last Admin: 04/27/21 01:59 Dose: 10 ml Documented by: JORGE LUIS Midazolam HCl (Midazolam 5 Mg/Ml Vial) 10 mg NASAL NOW ONE Stop: 04/27/21 01:42 Last Admin: 04/27/21 01:58 Dose: 10 mg Documented by: JORGE LUIS Discharge Plan Departure Patient Disposition: Home Clinical Impression: Abscess of skin or subcutaneous tissue Instructions: DI for Skin Abscess Activity Restrictions/Additional Instructions: *You have been diagnosed with [right axilla superficial cutaneous abscess *What to do: *Please continue to take your regular medications as directed. [x ] New medication prescriptions sent to your pharmacy: [[facility] ] [ ] New medication written as a paper prescription [ ] No new medications given *Please follow up with your primary care provider in 2-3 days, call for an appointment. Let them know you were seen in the Emergency Department and that we ask that you be seen in follow up. We will electronically transmit a record of today's note if your PCP is in our system *If you do not have a primary care provider please contact the [facility] Resource line at [phone]. They will ask some questions about your medical history and help get you set up with a doctor in the community. *Return to Emergency Department if you should have any new, worsening or concerning symptoms, such as [fever greater than 101 F, shaking chills, worsening pain, persistent vomiting or other bothersome symptoms] Prescriptions: New doxycycline hyclate 100 mg tablet 100 mg PO BID Qty: 20 0RF No Action albuterol sulfate 90 mcg/actuation HFA aerosol inhaler 1 inh inhalation QID PRN (Reason: shortness of breath or wheezing) Qty: 6.7 0RF meloxicam 7.5 mg tablet 7.5 mg PO DAILY PRN (Reason: pain) Qty: 14 0RF
== END 2021-04-27 05:05 | disposition home or self-care (01) ==
PROVIDERS: Emergency Provider Emergency Medicine
DX: L02.411 Cutaneous abscess of right axilla (principal)
CPT/HCPCS: 10060; 87070; 87075; 87077; 87147; 87186; 87205; 99283; J2250

== ENCOUNTER 2021-09-17 04:54 | Emergency (ER) | payer OTHER, MEDICAID, SELFPAY ==
[2019-06-05 09:58] VITALS: BMI 30.4
--- NOTE | 2021-09-17 04:56 | ED_ITS ---
HPI - URI/Sore Throat General Chief Complaint: Upper Respiratory Symptoms Stated Complaint: possible strep throat Time Seen by Provider: 09/17/21 04:55 History of Present Illness HPI Narrative: 30-year-old female smoker with history of cutaneous abscess presents with a chief complaint of sore throat and difficulty swallowing for the past 24 hours. She is had strep throat on multiple prior occasions and states this feels quite similar. She is had some nasal congestion but denies much in the way of other symptoms such as runny nose, sneezing or cough. She did vomit a few days ago but denies any ongoing nausea or vomiting. She denies any abdominal pain, dysuria, frequency or urgency. Related Data Previous Rx's Medication Instructions Recorded albuterol sulfate 90 mcg/actuation 1 inh inhalation QID PRN shortness 02/08/21 aerosol inhaler of breath or wheezing #6.7 grams meloxicam 7.5 mg tablet 7.5 mg PO DAILY PRN pain #14 tabs 02/08/21 doxycycline hyclate 100 mg tablet 100 mg PO BID #20 tabs 04/27/21 Allergies Allergy/AdvReac Type Severity Reaction Status Date / Time zolpidem [From Ambien] AdvReac Intermediate Irritable Verified 09/17/21 05:05 Review of Systems Review of Systems Narrative: GENERAL: See HPI HEENT: See HPI RESPIRATORY: See HPI CARDIOVASCULAR: Denies chest pain, palpitations, orthopnea, edema, GASTROINTESTINAL: See HPI : Denies dysuria, frequency, incontinence, hematuria, urinary retention. MUSCULOSKELETAL: denies weakness, joint pain, or bony pain SKIN: Denies rash, skin lesions, or other NEUROLOGIC: Denies weakness, headache, numbness, change in speech, confusion, seizures, incoordination. PSYCHIATRIC: No concerning psychosocial issues. 12 point review of systems is negative except for those stated above Patient History Medical History (Updated 09/17/21 @ 05:13 by Bakari Malik DO) Asthma Drug abuse Surgical History History of appendectomy Social History household members: other Smoking Status: Current every day smoker alcohol intake: current Smoking Status: Current every day smoker tobacco type: cigarettes alcohol intake frequency: 0-2 drinks per day Substance Use Type: marijuana, heroin and methamphetamine Exam Narrative Exam Narrative: GENERAL: [30] year old patient appears stated age. Well-developed patient, in mild distress. Appears uncomfortable and clearly does not feel well HEAD: Atraumatic. Normocephalic. EYES: Pupils equal round and reactive. Extraocular motions intact. No scleral icterus. No injection or drainage. ENT: Nose without bleeding, purulent drainage. Airway patent, posterior pharynx erythematous and edematous without uvular pointing or evidence of tonsillar abscess. NECK: Trachea midline. Non tender CARDIOVASCULAR: Regular rate and rhythm without murmurs, gallops, or rubs. RESPIRATORY: Clear to auscultation. Breath sounds equal bilaterally. No wheezes, rales, or rhonchi. GASTROINTESTINAL: Abdomen soft, non-tender, nondistended. EXTREMITIES: No edema or joint tenderness. BACK: Nontender without deformity or crepitance. No flank tenderness. NEURO: AOx3. SKIN: No rash or erythema of visible areas Initial Vital Signs Initial Vital Signs: Vital Signs Temperature 99.1 F 09/17/21 05:05 Pulse Rate 108 H 09/17/21 05:05 Respiratory Rate 21 09/17/21 05:05 Blood Pressure 115/75 09/17/21 05:05 Pulse Oximetry 100 09/17/21 05:05 Oxygen Delivery Method 09/17/21 05:05 Course Orders Ordered: Discontinued Medications Ibuprofen (Ibuprofen 400 Mg Tablet) 800 mg PO NOW ONE Stop: 09/17/21 05:08 Last Admin: 09/17/21 05:11 Dose: 800 mg Documented By: ERINN Penicillin G Benzathine (Penicillin G Benzathine 1,200,000 Unit/2 Ml Syringe) 1,200,000 unit IM NOW ONE Stop: 09/17/21 05:11 Last Admin: 09/17/21 05:13 Dose: 1,200,000 unit Documented By: ERINN Vital Signs Vital signs: Vital Signs - 8 hr 09/17/21 05:05 Temperature 99.1 F Pulse Rate 108 H Respiratory Rate 21 Blood Pressure 115/75 Pulse Oximetry 100 Oxygen Delivery Method Room Air MDM - URI/Sore Throat Lab Data Labs: Point of Care Testing Rapid Strep A Positive MDM Narrative Medical decision making narrative: Rapid strep test is positive, patient is not septic and is tolerating orals. After discussion we sure the opinion that penicillin G intramuscular is most appropriate in her case. Return precautions discussed and questions answered to her apparent satisfaction Discharge Plan Departure Patient Disposition: Home Clinical Impression: Strep throat Instructions: DI for Strep Throat Activity Restrictions/Additional Instructions: *You have been diagnosed with [group A strep throat] *What to do: *Please continue to take your regular medications as directed. [ ] New medication prescriptions sent to your pharmacy: [ ] [ ] New medication written as a paper prescription [x ] No new medications given *Please follow up with your primary care provider in 2-3 days, call for an appointment. Let them know you were seen in the Emergency Department and that we ask that you be seen in follow up. We will electronically transmit a record of today's note if your PCP is in our system *If you do not have a primary care provider please contact the [facility] Resource line at [phone]. They will ask some questions about your medical history and help get you set up with a doctor in the community. *Return to Emergency Department if you should have any new, worsening or concerning symptoms Prescriptions: No Action albuterol sulfate 90 mcg/actuation HFA aerosol inhaler 1 inh inhalation QID PRN (Reason: shortness of breath or wheezing) Qty: 6.7 0RF meloxicam 7.5 mg tablet 7.5 mg PO DAILY PRN (Reason: pain) Qty: 14 0RF doxycycline hyclate 100 mg tablet 100 mg PO BID Qty: 20 0RF Visit Report Forms: Patient Portal/API
[2021-09-17 05:05] VITALS: BP 115/75; PULSE 108; RESP 21; TEMP 37.3; O2SAT 100; BMI 30.9
[2021-09-17] MEDS: IBUPROFEN 400 MG TABLET 800 MG PO (05:11)
[2021-09-17] MEDS: PENICILLIN G BENZATHINE 1,200,000 UNIT/2 ML SYRINGE 1200000 UNIT IM (05:13)
== END 2021-09-17 05:32 | disposition home or self-care (01) ==
PROVIDERS: Emergency Provider Emergency Medicine
DX: J02.0 Streptococcal pharyngitis (principal)
CPT/HCPCS: 87880; 96372; 99283; J0561

== ENCOUNTER 2022-10-17 17:09 | Emergency (ER) | payer OTHER, MEDICAID, SELFPAY ==
[2019-06-05 09:58] VITALS: BMI 30.4
[2022-10-17 17:28] VITALS: BP 107/68; PULSE 89; RESP 18; TEMP 36.9; O2SAT 99; BMI 33.6
[2022-10-17 17:55] LABS: COVID19 -Nasal RAPID Negative (Negative)
[2022-10-17 18:44] VITALS: BP 108/64; PULSE 81; RESP 14; O2SAT 100
--- NOTE | 2022-10-17 18:57 | ED_ITS ---
HPI - Extremity Problem General Chief complaint: Extremity Problem,Nontraumatic Stated complaint: Lower extremity swelling and pain Time Seen by Provider: 10/17/22 18:43 Source: patient Mode of arrival: Wheelchair History of Present Illness HPI Narrative: Patient is a 31-year-old female who presents with bilateral foot pain, left greater than right. She has erythema edema and warmth of her bilateral feet. She reports history of similar symptoms in her feet in the past was treated with antibiotics and improved. She denies any recent trauma to her feet. She denies any fever or chills, respiratory symptoms. She currently uses methamphetamine, she reports no injection drug use for at least 4 months. She denies calf pain or swelling and does not use any hormones. Related Data Previous Rx's Medication Instructions Recorded albuterol sulfate 90 mcg/actuation 1 inh inhalation QID PRN shortness 02/08/21 aerosol inhaler of breath or wheezing #6.7 grams meloxicam 7.5 mg tablet 7.5 mg PO DAILY PRN pain #14 tabs 02/08/21 doxycycline hyclate 100 mg tablet 100 mg PO BID #20 tabs 04/27/21 sulfamethoxazole 800 1 tab PO BID 7 days #14 tabs 10/17/22 mg-trimethoprim 160 mg tablet (Bactrim DS) Allergies Allergy/AdvReac Type Severity Reaction Status Date / Time zolpidem [From Ambien] AdvReac Intermediate Irritable Verified 09/17/21 05:05 Review of Systems Review of Systems ROS Unobtainable: All systems reviewed & are unremarkable except as noted in HPI and below Patient History Medical History Asthma Drug abuse Surgical History History of appendectomy Social History household members: other Smoking Status: Current every day smoker alcohol intake: current Smoking Status: Current every day smoker tobacco type: cigarettes and vaping alcohol intake frequency: 0-2 drinks per day Substance Use Type: marijuana, heroin, opiates and methamphetamine Exam Narrative Exam Narrative: GENERAL:31 year old patient appears stated age. Well-developed patient, in no distress. NEURO: AOx3. HEAD: Atraumatic. Normocephalic. RESPIRATORY: No distress EXTREMITIES: Left foot and ankle with diffuse erythema, warmth, swelling and quite tender to touch. Right foot also tender and erythematous but less than left. No calf swelling or tenderness, no calf edema or erythema periods. pulses intact. Initial Vital Signs Initial Vital Signs: Vital Signs Temperature 98.4 F 10/17/22 17:28 Pulse Rate 89 10/17/22 17:28 Respiratory Rate 18 10/17/22 17:28 Blood Pressure 107/68 10/17/22 17:28 Pulse Oximetry 99 10/17/22 17:28 Oxygen Delivery Method Room Air 10/17/22 17:28 Course Orders Ordered: ED Orders 10/17/22 19:12 Consult to TECHNOLOGY TRAINING ASSOCIATE - Corrosion Control Engineer Stat Discontinued Medications Trimethoprim/Sulfamethoxazole (Trimeth/Sulfa 160/800 (Ds) Tablet) 1 tab PO NOW ONE Stop: 10/17/22 18:54 Last Admin: 10/17/22 18:59 Dose: 1 tab Documented By: MAC Vital Signs Vital signs: Vital Signs - 8 hr 10/17/22 17:28 10/17/22 18:44 Temperature 98.4 F Pulse Rate 89 81 Respiratory Rate 18 14 Blood Pressure 107/68 108/64 Pulse Oximetry 99 100 Oxygen Delivery Method Room Air Room Air MDM - Extremity (Nontraumatic) Lab Data Labs: Lab Results 10/17/22 Range/Units 17:34 SARS-CoV-2 (PCR) Negative (Negative) MDM Narrative Medical decision making narrative: Multiple etiologies for patient's symptoms considered including, but not limited to: Cellulitis, abscess, DVT. Exam most consistent with cellulitis of her lower extremities. Unknown if MRSA history, history of injection drug use and current drug use. We will treat with Bactrim x7 days. Patient's symptoms improved over duration of stay with above-stated therapies. Findings and discharge diagnosis discussed with patient/family followed by verbalization of understanding Return precautions discussed with patient/family whom verbalize understanding of diagnosis and plan Discharge Plan Departure Patient Disposition: Home Clinical Impression: Cellulitis Instructions: DI for Cellulitis -- Adult Activity Restrictions/Additional Instructions: *You have been diagnosed with cellulitis. We will prescribe 1 week of Bactrim, if you are having fevers, chills or increasing symptoms after 48 hours on antibiotics please return to the emergency department for further evaluation. Keep legs elevated as much as you possibly can to decrease the swelling and pain. You can take Tylenol and ibuprofen for pain. *What to do: *Please continue to take your regular medications as directed. [x ] New medication prescriptions sent to your pharmacy: [[facility]] [ ] New medication written as a paper prescription [ ] No new medications given *Please follow up with your primary care provider in 2-3 days, call for an appointment. Let them know you were seen in the Emergency Department and that we ask that you be seen in follow up. We will electronically transmit a record of today's note if your PCP is in our system *If you do not have a primary care provider please contact the [facility] Resource line at [phone]. They will ask some questions about your medical history and help get you set up with a doctor in the community. *Return to Emergency Department if you should have any new, worsening or concerning symptoms, such as [fever greater than 101 F, shaking chills, worsening pain, persistent vomiting or other bothersome symptoms] Prescriptions: New sulfamethoxazole-trimethoprim [Bactrim DS] 800-160 mg tablet 1 tab PO BID 7 Days Qty: 14 0RF No Action albuterol sulfate 90 mcg/actuation HFA aerosol inhaler 1 inh inhalation QID PRN (Reason: shortness of breath or wheezing) Qty: 6.7 0RF meloxicam 7.5 mg tablet 7.5 mg PO DAILY PRN (Reason: pain) Qty: 14 0RF doxycycline hyclate 100 mg tablet 100 mg PO BID Qty: 20 0RF Stand Alone Forms: Patient Portal/API
[2022-10-17] MEDS: TRIMETH/SULFA 160/800 (DS) TABLET 1 TAB PO (18:59)
== END 2022-10-17 19:14 | disposition home or self-care (01) ==
PROVIDERS: Emergency Medicine; Emergency Provider Physician Assistant
DX: L03.116 Cellulitis of left lower limb (principal); L03.115 Cellulitis of right lower limb; Z20.822 Contact with and (suspected) exposure to COVID-19
CPT/HCPCS: 87635; 99283; C9803

== ENCOUNTER 2023-04-03 00:39 | Emergency (ER) | payer OTHER, MEDICAID, SELFPAY ==
[2019-06-05 09:58] VITALS: BMI 30.4
[2023-04-03 00:54] VITALS: PULSE 63; O2SAT 99
[2023-04-03 00:55] VITALS: BP 146/73; PULSE 63; RESP 18; TEMP 36.4; O2SAT 98
[2023-04-03 01:00] VITALS: PULSE 79; O2SAT 99
[2023-04-03 01:01] VITALS: BP 114/71; PULSE 79; O2SAT 100
[2023-04-03 01:18] LABS: Strep Grp A by PCR Rapid Positive (Negative)
--- NOTE | 2023-04-03 01:23 | ED.URI ---
HPI - URI/Sore Throat General Chief Complaint: Upper Respiratory Symptoms Stated Complaint: throat swelled up over night,voicehoarse,bumps ton Time Seen by Provider: 04/03/23 01:11 Source: patient Mode of arrival: Ambulatory History of Present Illness HPI Narrative: Patient is a 32-year-old female who presents today with 2 days of a sore throat. She reports that she was diagnosed with strep just over a week ago. She started taking amoxicillin but then started having reaction to it. She broke out into a rash and had some nausea vomiting stomach upset so she stopped taking it. She thought she was actually getting better but then a couple days ago started having throat pain again in tonight the throat pain got worse. She feels like her voice is hoarse. She has a mild cough but not too bad. No current fever. She is managing her own secretions. Related Data Previous Rx's Medication Instructions Recorded albuterol sulfate 90 mcg/actuation 1 inh inhalation QID PRN shortness 02/08/21 aerosol inhaler of breath or wheezing #6.7 grams meloxicam 7.5 mg tablet 7.5 mg PO DAILY PRN pain #14 tabs 02/08/21 doxycycline hyclate 100 mg tablet 100 mg PO BID #20 tabs 04/27/21 azithromycin 250 mg tablet See Rx Instructions PO .COMPLEX #6 04/03/23 tabs Allergies Allergy/AdvReac Type Severity Reaction Status Date / Time zolpidem [From Ambien] AdvReac Intermediate Irritable Verified 09/17/21 05:05 Patient History Medical History (Updated 04/03/23 @ 01:31 by Isela Keller DO) Asthma Drug abuse Surgical History History of appendectomy Social History household members: other Smoking Status: Current every day smoker alcohol intake: current Smoking Status: Current every day smoker tobacco type: cigarettes and vaping alcohol intake frequency: 0-2 drinks per day Substance Use Type: marijuana, heroin, opiates and methamphetamine Exam Initial Vital Signs Initial Vital Signs: Vital Signs Temperature 97.5 F L 04/03/23 00:55 Pulse Rate 63 04/03/23 00:55 Respiratory Rate 18 04/03/23 00:55 Blood Pressure 146/73 H 04/03/23 00:55 Pulse Oximetry 98 04/03/23 00:55 Oxygen Delivery Method Room Air 04/03/23 00:55 GENERAL: Alert well-appearing 32-year-old female and in no acute distress. HEENT: Head atraumatic,EOMI, pupils reactive, face symmetric, moist mucous membranes PHARYNX: Erythematous no uvula swelling or deviation no significant tonsillar exudate cervical lymphadenopathy CARDIOVASCULAR: Regular rate and rhythm without murmurs, rubs or gallops. RESPIRATORY: Breath sounds equal bilaterally, no wheezes rales or rhonchi.s EXTREMITIES: Normal range of motion, no clubbing or edema. Neurovascularly intact NEUROLOGICAL: Alert and oriented x4 SKIN: Warm, dry, no laceration, no petechiae, no rashes or lesions. Course Orders Ordered: ED Orders 04/03/23 00:55 Strep Grp A by PCR Rapid Stat Discontinued Medications Azithromycin (Azithromycin 250 Mg Tablet) 500 mg PO NOW ONE Stop: 04/03/23 01:30 Last Admin: 04/03/23 01:32 Dose: 500 mg Clindamycin HCl (Clindamycin 150 Mg Capsule) 300 mg PO NOW ONE Stop: 04/03/23 01:27 Ibuprofen (Ibuprofen 400 Mg Tablet) 800 mg PO NOW ONE Stop: 04/03/23 01:27 Last Admin: 04/03/23 01:30 Dose: 800 mg Vital Signs Vital signs: Vital Signs - 8 hr 04/03/23 00:55 Temperature 97.5 F L Pulse Rate 63 Respiratory Rate 18 Blood Pressure 146/73 H Pulse Oximetry 98 Oxygen Delivery Method Room Air MDM - URI/Sore Throat Lab Data Labs: Lab Results 04/03/23 Range/Units 00:55 Group A Strep (PCR) Positive H (Negative) MDM Narrative Medical decision making narrative: Patient 32-year-old female with recent history of strep and did not complete a course of antibiotics due to reaction. Today she has no evidence of peritonsillar abscess or retropharyngeal abscess. She had a popsicle here in the ED managing her own secretions. Again positive for strep. She had reaction to amoxicillin will put her on azithromycin instead. #66: Appropriate Testing for Patients with Pharyngitis X The patient has acute pharyngitis/tonsillitis. The patient was prescribed antibiotics today and a strep test or culture was performed. [SATISFIES MIPS PERFORMANCE] [] The patient has acute pharyngitis/tonsillitis and was prescribed antibiotics today. A strep test or culture was not performed because the patient meets one of the following: [MIPS PERFORMANCE EXCEPTION/EXCLUSION] [] Patient received a competing diagnosis. The patient?s competing diagnosis is [] (e.g. acute otitis media, chronic sinusitis, cellulitis, etc.) [] Patient is currently on antibiotics or has been in the last 30 days. [] Patient had a competing comorbid condition within the last 12 months. The patient?s comorbid condition is [] (e.g., tuberculosis, neutropenia, cystic fibrosis, chronic bronchitis, pulmonary edema, respiratory failure, rheumatoid lung disease) [] The patient has acute pharyngitis/tonsillitis. The patient was prescribed antibiotics today and a strep test or culture was not performed. [DOES NOT SATISFY MIPS PERFORMANCE] Discharge Plan Departure Patient Disposition: Home Clinical Impression: Strep pharyngitis Instructions: DI for Strep Throat Activity Restrictions/Additional Instructions: *You have been diagnosed with strep pharyngitis *What to do: At this time increase fluids as tolerated. Finish antibiotics *Continue to take medications as directed Z-Vamsi take as directed you were given your 1st dose tonight in the ED--> [facility] *Follow up with your primary care provider in 2-3 days or call [phone] *Return to ER if you should have increasing pain, difficulty swallowing, or any new, worsening or concerning symptoms Prescriptions: New azithromycin 250 mg tablet See Rx Instructions PO .COMPLEX Qty: 6 0RF Rx Instructions: For 250 mg dose pack: take 500 mg today (day 1), then 250 mg for 4 days (days 2-5) No Action albuterol sulfate 90 mcg/actuation HFA aerosol inhaler 1 inh inhalation QID PRN (Reason: shortness of breath or wheezing) Qty: 6.7 0RF meloxicam 7.5 mg tablet 7.5 mg PO DAILY PRN (Reason: pain) Qty: 14 0RF doxycycline hyclate 100 mg tablet 100 mg PO BID Qty: 20 0RF Stand Alone Forms: Patient Portal/API
[2023-04-03 01:30] VITALS: BP 124/60; PULSE 77; O2SAT 97
[2023-04-03] MEDS: IBUPROFEN 400 MG TABLET 800 MG PO (01:30)
[2023-04-03] MEDS: AZITHROMYCIN 250 MG TABLET 500 MG PO (01:32)
== END 2023-04-03 01:38 | disposition home or self-care (01) ==
PROVIDERS: Emergency Provider Emergency Medicine
DX: J02.0 Streptococcal pharyngitis (principal); F17.210 Nicotine dependence, cigarettes, uncomplicated; F17.290 Nicotine dependence, other tobacco product, uncomplicated
CPT/HCPCS: 87651; 99283

== ENCOUNTER 2023-11-02 08:36 | Emergency (ER) | payer OTHER, MEDICAID, SELFPAY ==
[2019-06-05 09:58] VITALS: BMI 30.4
--- NOTE | 2023-11-02 08:38 | ED.DENTAL ---
HPI - Dental/Oral General Chief complaint: Dental/Oral Stated complaint: abcess tooth Time Seen by Provider: 11/02/23 08:38 Source: patient, RN notes reviewed and old records reviewed Mode of arrival: Ambulatory Limitations: no limitations History of Present Illness HPI Narrative: 32-year-old female history of polysubstance abuse presents with complaint of dental pain swelling and concern for dental abscess on the right lower jaw. Patient states several days of symptoms. No fevers she notes a little bit of runny nose, she states has been sore she has had radiation of pain to her ear. She notes swelling on the inside no swelling or redness of the outside of her face. She states she has had dental abscess in the past. The tooth posterior has been extracted to that area many years ago. Patient states no chest pain or shortness of breath. No nausea or vomiting. No other GI symptoms. Patient states no daily prescription medications. Has had appendectomy. Not currently established with a dental but states she can. Had reaction to amoxicillin which she describes as rash nausea vomiting in the past. Patient denies any other antibiotic allergies. Daily tobacco, occasional alcohol. Uses marijuana, fentanyl and methamphetamines. Last use was today. Related Data Previous Rx's Medication Instructions Recorded albuterol sulfate 90 mcg/actuation 1 inh inhalation QID PRN shortness 02/08/21 aerosol inhaler of breath or wheezing #6.7 grams meloxicam 7.5 mg tablet 7.5 mg PO DAILY PRN pain #14 tabs 02/08/21 doxycycline hyclate 100 mg tablet 100 mg PO BID #20 tabs 04/27/21 azithromycin 250 mg tablet See Rx Instructions PO .COMPLEX #6 04/03/23 tabs clindamycin HCl 300 mg capsule 300 mg PO QID 10 days #40 caps 11/02/23 (Cleocin HCl) Allergies Allergy/AdvReac Type Severity Reaction Status Date / Time zolpidem [From Ambien] AdvReac Intermediate Irritable Verified 11/02/23 08:49 Review of Systems Review of Systems ROS Unobtainable: All systems reviewed & are unremarkable except as noted in HPI and below Patient History Medical History (Updated 11/02/23 @ 08:50 by Marcelina Alves DO) Asthma Drug abuse Surgical History History of appendectomy Social History household members: other Smoking Status: Current every day smoker alcohol intake: current Smoking Status: Current every day smoker tobacco type: cigarettes and vaping alcohol intake frequency: 0-2 drinks per day Substance Use Type: marijuana, heroin, opiates and methamphetamine Exam Narrative Exam Narrative: GEN: well nourished, female, alert and oriented x 3, patient appears to be in mild distress. HEENT: Atraumatic, pupils are equal round reactive to light, extraocular movements are intact, nares are clear, TMs are clear with no fluid, there is no conjunctival pallor. Throat is clear without any exudates, erythema, tonsillar enlargement or uvular deviation, patient has swelling in the base of tooth 13., no fluctuance or drainable abscess. There is a little bit of erythema. Patient is tender over that area no swelling of the face, cheek or airway. Or pharynx he is otherwise normal. No stridor or hoarseness. HEART: Regular rate and rhythm without murmur, clicks, rubs. LUNGS:Lungs clear to auscultation, no wheezes, rales, crackles, chest moves symmetrically ABD:bowel sounds normal, soft, non-tender, no guarding, rebound, rigidity, no masses noted, no hepatosplenomegaly MSCL: Non-tender, no muscle atrophy, muscles strength 5/5 upper and lower extremities, full range of motion, normal gait NEURO:CN 2-12 intact, sensation normal Initial Vital Signs Initial Vital Signs: Vital Signs Temperature 98.8 F 11/02/23 08:44 Pulse Rate 92 H 11/02/23 08:44 Respiratory Rate 16 11/02/23 08:44 Blood Pressure 130/71 11/02/23 08:44 Pulse Oximetry 100 11/02/23 08:44 Oxygen Delivery Method Room Air 11/02/23 08:44 Course Vital Signs Vital signs: Vital Signs - 8 hr 11/02/23 08:44 Temperature 98.8 F Pulse Rate 92 H Respiratory Rate 16 Blood Pressure 130/71 Pulse Oximetry 100 Oxygen Delivery Method Room Air MDM - Dental/Oral MDM Narrative Medical decision making narrative: 32-year-old female with appears to be dental abscess. Patient has swelling around tooth 17. With no other acute changes on physical exam. We will start oral antibiotic patient has had issues with amoxicillin in the past so we will cover with clindamycin. Discussed follow up with dental. Discharge Plan Departure Patient Disposition: Home Clinical Impression: Dental abscess Instructions: Tooth Abscess Activity Restrictions/Additional Instructions: Follow up with your dental for rechecked. Take oral antibiotics until completed. [facility] in [place]. Please return for fevers, rapidly worsening swelling, new redness or swelling of the face, swelling of the airway, hoarseness or muffled voice, difficulty swallowing secretions, persistent vomiting or other new or concerning changes. Prescriptions: New clindamycin HCl [Cleocin HCl] 300 mg capsule 300 mg PO QID 10 Days Qty: 40 0RF No Action azithromycin 250 mg tablet See Rx Instructions PO .COMPLEX Qty: 6 0RF Rx Instructions: For 250 mg dose pack: take 500 mg today (day 1), then 250 mg for 4 days (days 2-5) albuterol sulfate 90 mcg/actuation HFA aerosol inhaler 1 inh inhalation QID PRN (Reason: shortness of breath or wheezing) Qty: 6.7 0RF meloxicam 7.5 mg tablet 7.5 mg PO DAILY PRN (Reason: pain) Qty: 14 0RF doxycycline hyclate 100 mg tablet 100 mg PO BID Qty: 20 0RF Stand Alone Forms: Patient Portal/API
[2023-11-02 08:44] VITALS: BP 130/71; PULSE 92; RESP 16; TEMP 37.1; O2SAT 100; BMI 35.4
== END 2023-11-02 08:55 | disposition home or self-care (01) ==
PROVIDERS: Emergency Provider Emergency Medicine
DX: K04.7 Periapical abscess without sinus (principal)
CPT/HCPCS: 99281; 99283

== ENCOUNTER → 2024-08-10 09:45 | Outpatient (CLI) | payer OTHER, SELFPAY ==
[2024-08-03 14:19] VITALS: BMI 30.4
--- NOTE | 2024-08-10 09:47 | DI.RAD.S_ITS ---
PROCEDURE: XR T AND L SPINE 2 TO 3 VIEWS INDICATIONS: thoracic back pain TECHNIQUE: 2 views acquired of the thoracolumbar spine. COMPARISON: None. FINDINGS: Bones: No acute fractures or dislocations. Visualized inferior ribs appear intact. No suspicious bony lesions. Soft tissues: No suspicious soft tissue calcifications. IMPRESSION: No acute thoracic spine fracture or dislocation. No significant degenerative disc disease. Dictated by: Raphael Huang M.D. on 08/13/2024 at 0:52 Approved by: Raphael Huang M.D. on 08/13/2024 at 0:53
== END ==
PROVIDERS: Referring Provider Nurse Practitioner Family; Visit Provider Nurse Practitioner Family
DX: M54.6 Pain in thoracic spine (principal)
CPT/HCPCS: 72082